=== PATIENT | female | born 1995 | race Caucasian/White ===

== ENCOUNTER 2024-01-26 11:28 | Outpatient (OUT) | payer OTHER, SELFPAY ==
--- NOTE | 2024-01-26 11:31 | US_ITS ---
The [address] [address] Patient Name: DEBBIE NARAYANAN MRN: [id number] date: 1995 Sex: F Assigned Patient Location: Current Patient Location: Accession/Order Number: [id number] Exam Date: 01/26/2024 11:50 Report Date: 01/26/2024 15:32 At the request of: GUDELIA ABDUL Procedure: US pelvis w/ transvaginal EXAMINATION: US pelvis w/ transvaginal HISTORY: Abnormal Menstrual Cycle N92.6 COMPARISON: No relevant comparison available. TECHNIQUE: Transabdominal and/or transvaginal sonographic examination was performed as indicated by examination type. FINDINGS: UTERUS: Normal size and appearance. Incidental small nabothian cyst within cervix. Uterus size: 10.8 x 4.9 x 6.1 cm ENDOMETRIUM: Normal homogeneous appearance. Endometrial thickness: 7 mm RIGHT OVARY: Normal size and appearance. Duplex Doppler demonstrates normal waveform and flow; resistive index 0.6. Ovary size: 3.8 x 2.2 x 2.7 cm LEFT OVARY: Normal size and appearance. Duplex Doppler demonstrates normal waveform and flow; resistive index 0.4. Ovary size: 4.8 x 2.8 x 3.8 cm CUL-DE-SAC: Trace amount of free fluid, likely physiologic. BLADDER: Unremarkable. OTHER: None. US/US pelvis w/ transvaginal IMPRESSION: 1. No abnormal or suspicious findings to account for patient's symptoms. Electronically authenticated by: BANG KELLOGG Date: 01/26/2024 15:32
== END 2024-01-26 11:29 | disposition home or self-care (01) ==
LOC: US 11:29
PROVIDERS: Visit Provider Obstetrics & Gynecology
DX: N92.6 Irregular menstruation, unspecified (principal); N94.6 Dysmenorrhea, unspecified
CPT/HCPCS: 76830; 76856

== ENCOUNTER 2024-03-29 11:00 | Outpatient (OUT) | payer OTHER, SELFPAY | END 2024-03-29 11:01 | disposition home or self-care (01) | LOC: PST 11:01 | PROVIDERS: Visit Provider Obstetrics & Gynecology | DX: Z01.818 Encounter for other preprocedural examination (principal); R10.2 Pelvic and perineal pain ==

== ENCOUNTER 2024-04-12 06:44 | Day surgery (SDC) | payer OTHER, SELFPAY ==
[2024-03-29 11:29] VITALS: BP 118/74; PULSE 73; TEMP 36.4; O2SAT 99; BMI 24.8
[2024-04-12] VITALS (13 sets, daily range): BP systolic 114–142; BP diastolic 60–93; PULSE 58–92; TEMP 36.3–36.6; O2SAT 98–100; BMI 24.6
--- OUTSIDE RECORDS SUMMARY | 2024-04-12 06:47 | XMS_ITS ---
Patient Summarization (C-CDA 2.1 CCD) Created on: April 12, 2024 DEBBIE NARAYANAN : 1995 Sex: Female Author Organization Sample organization Care Team Providers Care Shipping And Receiving Assistant Name Role Phone ARETHA ARELLANO Attending Unavailable ARETHA ARELLANO Admitting Unavailable Devonteebaleyda, DR Suazo Consulting Unavailable MISC, DR RAMIREZ Primary Care Unavailable ARETHA ARELLANO Consulting Unavailable CHANTELL, DR GALEAS Admitting Unavailable CHANTELL, DR GALEAS Consulting Unavailable CHANTELL, DR GALEAS Attending Unavailable MISC, DR RAMIREZ Primary Care Unavailable CHANTELL, DR GALEAS Attending Unavailable CHANTELL, DR GALEAS Admitting Unavailable CHANTELL, DR GALEAS Consulting Unavailable MISC, DR RAMIREZ Primary Care Unavailable CHANTELL, DR GALEAS Admitting Unavailable CHANTELL, DR GALEAS Consulting Unavailable MISC, DR RAMIREZ Primary Care Unavailable CHANTELL, DR GALEAS Attending Unavailable MISC, DR RAMIREZ Primary Care Unavailable CHANTELL, DR GALEAS Admitting Unavailable CHANTELL, DR GALEAS Attending Unavailable ARETHA ARELLANO Primary Care Unavailable CHANTELL, DR GALEAS Attending Unavailable CHANTELL, DR GALEAS Admitting Unavailable CHANTELL, DR GALEAS Consulting Unavailable ARETHA ARELLANO Consulting Unavailable ARETHA ARELLANO Attending Unavailable ARETHA ARELLANO Admitting Unavailable MISC, DR RAMIREZ Primary Care Unavailable CHANTELL, DR GALEAS Attending Unavailable CHANTELL, DR GALEAS Admitting Unavailable MISC, DR RAMIREZ Primary Care Unavailable CHANTELL, DR GALEAS Procedure Practitioner Unavailab le CHANTELL, DR GALEAS Admitting Unavailable CHANTELL, DR GALEAS Consulting Unavailable MISC, DR RAMIREZ Primary Care Unavailable CHANTELL, DR GALEAS Attending Unavailable ARETHA ARELLANO Consulting Unavailable LEDY DODSON Consulting Unavailable ARETHA ARELLANO Consulting Unavailable ARETHA ARELLANO Attending Unavailable ARETHA ARELLANO Admitting Unavailable ARETHA ARELLANO Consulting Unavailable ARETHA ARELLANO Attending Unavailable ARETHA ARELLANO Admitting Unavailable MISC, DR RAMIREZ Primary Care Unavailable ARETHA ARELLANO Consulting Unavailable ARETHA ARELLANO Attending Unavailable ARETHA ARELLANO Admitting Unavailable MISC, DR DOCTOR Primary Care Unavailable GUDELIA FLORENCE Attending Unavailable GUDELIA FLORENCE Attending Unavailable CHERRI, PASHA Elizalde Attending Unavailable Encounters Encounter Date Encounter Type Care Provider Facility Start: 03-19-2024 End: 03-19-2024 ambulatory GUDELIA FLORENCE Not Available Start: 01-24-2024 End: 01-24-2024 ambulatory GUDELIA FLORENCE Not Available Start: 10-11-2023 End: 10-11-2023 ambulatory PASHA HARLEY Not Available Start: 05-23-2022 End: 05-23-[address] GUDELIA FLORENCE Facility:[facility] Start: 10-11-[address] DOCTOR DALTON Facility :[facility] Start: 10-05-2021 End: 10-07-2021 Evaluation and management of inpatient DR GUDELIA FLORENCE Facility:[facility] Start: 10-04-2021 Encounter for prepro cedural laboratory examination DR GUDELIA FLORENCE [facility] Start: 10-02-2021 End: 10-03-[address] GUDELIA FLORENCE Facility:[facility] Start: 09-29-2021 End: 09-30-2021 Encounter for preprocedural laboratory examination DR GUDELIA FLORENCE Facility:[facility] Start: 09-29-2021 Evaluation and manag ement of inpatient DR GUDELIA FLORENCE Facility:[facility] Start: 09-29-2021 End: 09-30-[address] GUDELIA FLORENCE Facility:[facility] Start: 09-13-2021 End: 09-13-2021 ambulatory ARETHA ARELLANO Facility:[facility] Start: 09-10-2021 End: 09-11-2021 ambulatory ARETHA ARELLANO Facility:[facility] Start: 09-03-2021 End: 09-03-2021 ambulatory ARETHA ARELLANO Facility:[facility] Start: 08-20-2021 End: 08-20-2021 ambulatory ARETHA ARELLANO Facility:[facility] Start: 06-01-2021 End: 06-02-2021 ambulatory ARETHA ARELLANO Facility:[facility] Payers Date Payer Category Payer Unknown [id number] 2019 Unknown [id number] 1995 Unknown [id number] 2.16.84 [id number] 1995 Unknown [id number] 2.16.84 [id number] 1995 Unknown [id number] 2.16.84 [id number] 1995 Unknown [id number] 2.16.84 [id number] 1995 Unknown [id number] 2.16.84 [id number] 1995 Unknown [id number] 2.16.84 [id number] 1995 Unknown [id number] 2.16.84 [id number] 1995 Unknown [id number] 2.16.84 [id number] 1995 Unknown [id number] 2.16.84 [id number] 1995 Unknown [id number] 2.16.84 [id number] 1994 Unknown [id number] 2.16.84 [id number] 1994 Unknown [id number] 2.16.84 [id number] 1994 Unknown [id number] 2.16.84 [id number] 1994 Unknown [id number] 2.16.84 [id number] 1994 Unknown [id number] 2.16.840 .[id number] 1959 Unknown [id number] Problems Active Problems Problem Classification Problem Date Documented Date Episodic/Chronic Immunizations and screening for infectious disease (1 source) Encounter for screening for human papillomavirus (HPV); Translations: [ENC SCREENING HUMAN PAPILLOMAVIRUS] Onset: 05-24-2022 Episodic Other complications of ; puerperium affecting management of mother (1 source) Anemia of the puerperium; Translations: [ANEMIA OF THE PUERPERIUM] Onset: 10-12-2021 Chronic Other screening for suspected conditions (not mental disorders or infectious disease) (4 sources) Encounter for screening for malignant neoplasm of cervix; Translations: [ENC SCREENING MALIG NEOPLASM CERV] Onset: 05-23-2022 Episodic Unclassified (1 source) PERSONAL HISTORY OF COVID-19; Translations: [PERSONAL HISTORY OF COVID-19] Onset: 10-12-2021 Unclassified (1 source) OTH SPCF DIS/COND COMPL CHILDBIRTH; Translations: [OTH SPCF DIS/COND COMPL CHILDBIRTH] Onset: 10-12-2021 Unclassified (4 sources) CONTACT W/AND (SUSP) EXPOS COVID-19; Translations: [CONTACT W/AND (SUSP) EXPOS COVID-19] Onset: 10-04-2021 Past or Other Problems Problem Classification Problem Date Documented Date Episodic/Chronic Acute posthemorrhagic anemia (1 source) Acute posthemorrhagic anemia; Translations: [ACUTE POSTHEMORRHAGIC ANEMIA] Onset: 10-12-2021 Episodic Inflammatory diseases of female pelvic organs (1 source) Female pelvic peritoneal adhesions (postinfective); Translations: [FE PELV PERITON ADHES POSTINFECTIVE] Onset: 10-12-2021 Episodic Other complications of (2 sources) Supervision of other high risk pregnancies, third trimester; Translations: [SUP OTH HIGH RISK 3RD TRI] Onset: 10-04-2021 Episodic Other complications of (4 sources) Other specified related conditions, third trimester; Translations: [OTH SPEC PREG RELATED COND 3RD TRI] Onset: 08-20-2021 Episodic Other complications of (4 sources) Supervision of other high risk pregnancies, unspecified trimester; Translations: [SUP OTH HIGH RISK UNS TRI] Onset: 06-01-2021 Episodic Other and delivery including normal (6 sources) Single live ; Translations: [Encounter for supervision of normal , unspecified, third trimester] Onset: 06-08-2021 Episodic Previous (4 sources) Maternal care for low transverse scar from previous delivery; Translations: [MAT CARE LW TRANS SCAR PREV C/S DEL] Onset: 09-10-2021 Episodic Residual codes; unclassified (1 source) 39 weeks gestation of ; Translations: [39 WEEKS GESTATION OF ] Onset: 10-12-2021 Episodic Residual codes; unclassified (1 source) 38 weeks gestation of ; Translations: [38 WEEKS GESTATION OF ] Onset: 10-04-2021 Episodic Residual codes; unclassified (4 sources) Personal history of other complications of , childbirth and the puerperium; Translations: [PERS HX OTH COMP PG CHILDBIRTH AND PP] Onset: 09-29-2021 Episodic Residual codes; unclassified (1 source) 34 weeks gestation of ; Translations: [34 WEEKS GESTATION OF ] Onset: 09-10-2021 Episodic Residual codes; unclassified (1 source) 32 weeks gestation of ; Translations: [32 WEEKS GESTATION OF ] Onset: 08-28-2021 Episodic Unclassified (1 source) CONTACT W/AND (SUSP) EXPOS COVID-19; Translations: [CONTACT W/AND (SUSP) EXPOS COVID-19] Onset: 10-02-2021 Procedures Date Procedure Procedure Detail Performing Clinician Start: 10-05-2021 Extraction of Produc ts of Conception, Extraperitoneal, Open Approach ARETHA ARELLANO Results Test Name Value Interpretation Reference Range Facility PAP ACOG PANEL 2: 21 to 29on 05-26-2022 . . Normal [facility] Comment on above: Performed By: #### L DH, PREGQNT, URIC, BUN, ALT, AST, CREA, TSH #### [facility] [address], [place] [address] Dago Barragan Age Gdln ACOG Testing Normal [facility] Comment on above: Performed By: #### L DH, PREGQNT, URIC, BUN, ALT, AST, CREA, TSH #### [facility] [address], [place] [address] Dago Barragan DIAGNOSIS: Comment [facility] Comment on above: Result Comment: NEGA TIVE FOR INTRAEPITHELIAL LESION OR MALIGNANCY. Performed By: #### L DH, PREGQNT, URIC, BUN, ALT, AST, CREA, TSH #### [facility] [address] [place], [place] [address] Dago Barragan Methodology: Comment [facility] Comment on above: Result Comment: This liquid based ThinPrep(R) pap test was screened with the use of an image guided system. Performed By: #### L DH, PREGQNT, URIC, BUN, ALT, AST, CREA, TSH #### [facility] [address] [place] [address] Dago Barragan Note: Comment Normal [facility] Comment on above: Result Comment: The Pap smear is a screening test designed to aid in the detection of premalignant and malignant conditions of the uterine cervix. It is not a diagnostic procedure and should not be used as the sole means of detecting cervical cancer. Both false-positive and false-negative reports do occur. . Performed By: #### L DH, PREGQNT, URIC, BUN, ALT, AST, CREA, TSH #### [facility] [address] [place] [address] Dago Barragan Performed by: Comment Normal [facility] Comment on above: Result Comment: Joaquin Lawrence Broke Handler (ASCP) Performed By: #### L DH, PREGQNT, URIC, BUN, ALT, AST, CREA, TSH #### [facility] [address] [place] [address] Dago Barragan Reflex Criteria: Comment Normal [facility] Comment on above: Result Comment: The HPV DNA reflex criteria were not met with this specimen result therefore, no HPV testing was performed. . Performed By: #### L DH, PREGQNT, URIC, BUN, ALT, AST, CREA, TSH #### [facility] [address] [place] [address] Dago Barragan Specimen adequacy: Comment Normal [facility] Comment on above: Result Comment: Sati sfactory for evaluation. Endocervical and/or squamous metaplastic cells (endocervical component) are present. Performed By: #### L DH, PREGQNT, URIC, BUN, ALT, AST, CREA, TSH #### [facility] [address] [place] [address] Dago Barragan CBC AUTO DIFFon 10-06-2021 BASO # 0.0 103/ul Normal 0.0-0.1 [facility] Comment on above: Performed By: #### L DH, PREGQNT, URIC, BUN, ALT, AST, CREA, TSH #### [facility] [address] [place] [address] Dago Barragan Basophils/100 WBC (Bld) 0.2 % Normal 0.2-2.0 [facility] Comment on above: Performed By: #### L DH, PREGQNT, URIC, BUN, ALT, AST, CREA, TSH #### [facility] [address] [place] [address] Dagocolleen Barragan EO # 0.1 103/ul Normal 0.0-0.7 [facility] Comment on above: Performed By: #### L DH, PREGQNT, URIC, BUN, ALT, AST, CREA, TSH #### [facility] [address] [place] [address] Dago Barragan Eosinophils/100 WBC (Bld) 0.7 % Critically low 0.9-7.0 [facility] Comment on above: Performed By: #### L DH, PREGQNT, URIC, BUN, ALT, AST, CREA, TSH #### [facility] [address] [place] [address] Dago Barragan Erythrocyte distribution width (RBC) [Ratio] 13.0 % Normal 11.0-15.0 [facility] Comment on above: Performed By: #### L DH, PREGQNT, URIC, BUN, ALT, AST, CREA, TSH #### [facility] [address] [place] [address] Dago Barragan Hematocrit (Bld) [Volume fraction] 24.1 % Critically low 36.0-48.0 [facility] Comment on above: Performed By: #### L DH, PREGQNT, URIC, BUN, ALT, AST, CREA, TSH #### [facility] [address] [place] [address] Dago Barragan Hemoglobin (Bld) [Mass/Vol] 7.9 g/dL Critically low 12.0-16.0 [facility] Comment on above: Performed By: #### L DH, PREGQNT, URIC, BUN, ALT, AST, CREA, TSH #### [facility] [address] [place] [address] Dago Laurel IG # 0.05 10e3/ul Critically high 0.00-0.03 [facility] Comment on above: Performed By: #### L DH, PREGQNT, URIC, BUN, ALT, AST, CREA, TSH #### [facility] [address] [place] [address] Dago Laurel IG % 0.6 % Critically high 0.0-0.5 [facility] [place] Comment on above: Performed By: #### L DH, PREGQNT, URIC, BUN, ALT, AST, CREA, TSH #### [facility] [address] [place] [address] Dago Laurel LYMPH # 1.2 103/ul Normal 1.2-3.8 [facility] Comment on above: Performed By: #### L DH, PREGQNT, URIC, BUN, ALT, AST, CREA, TSH #### [facility] [address] [place] [address] Dago Laurel Lymphocytes/100 WBC (Bld) 14.9 % Critically low 20.5-60.0 [facility] Comment on above: Performed By: #### L DH, PREGQNT, URIC, BUN, ALT, AST, CREA, TSH #### [facility] [address] [place] [address] Dagocolleen Barragna MANUAL DIFF REQ NO Normal [facility] Comment on above: Performed By: #### L DH, PREGQNT, URIC, BUN, ALT, AST, CREA, TSH #### [facility] [address] [place] [address] Dago Laurel MCH (RBC) [Entitic mass] 29.8 pg Normal 26.7-34.0 [facility] Comment on above: Performed By: #### L DH, PREGQNT, URIC, BUN, ALT, AST, CREA, TSH #### [facility] [address] [place] [address] Dagocolleen Barragan MCHC (RBC) [Mass/Vol] 32.8 g/dL Normal 29.9-35.2 [facility] Comment on above: Performed By: #### L DH, PREGQNT, URIC, BUN, ALT, AST, CREA, TSH #### [facility] [address] [place] [address] Dago Barragan MCV (RBC) [Entitic vol] 90.9 fL Normal 81.0-99.0 [facility] Comment on above: Performed By: #### L DH, PREGQNT, URIC, BUN, ALT, AST, CREA, TSH #### [facility] [address] [place] [address] Dago Adamsen MONO # 0.7 103/ul Normal 0.3-0.8 [facility] Comment on above: Performed By: #### L DH, PREGQNT, URIC, BUN, ALT, AST, CREA, TSH #### [facility] [address] [place] [address] Dago Barragan Monocytes/100 WBC (Bld) 9.0 % Normal 1.7-12.0 [facility] Comment on above: Performed By: #### L DH, PREGQNT, URIC, BUN, ALT, AST, CREA, TSH #### [facility] [address] [place] [address] Dago Barragan NEUT # 6.0 103/ul Normal 1.4-6.5 [facility] Comment on above: Performed By: #### L DH, PREGQNT, URIC, BUN, ALT, AST, CREA, TSH #### [facility] [address] [place] [address] Dago Barragan Neutrophils/100 WBC (Bld) 74.6 % Normal 43.0-75.0 [facility] Comment on above: Performed By: #### L DH, PREGQNT, URIC, BUN, ALT, AST, CREA, TSH #### [facility] [address] [place] [address] Dago Barragan Platelet mean volume (Bld) [Entitic vol] 9.2 fL Critically low 9.5-13.5 [facility] Comment on above: Performed By: #### L DH, PREGQNT, URIC, BUN, ALT, AST, CREA, TSH #### [facility] [address] [place], [place] [id number] Dago Laurel PLT 137 103/ul Critically low 150-450 [facility] Comment on above: Performed By: #### L DH, PREGQNT, URIC, BUN, ALT, AST, CREA, TSH #### [facility] [address] [place] [address] Dago Laurel RBC 2.65 106/ul Critically low 4.20-5.40 [facility] Comment on above: Performed By: #### L DH, PREGQNT, URIC, BUN, ALT, AST, CREA, TSH #### [facility] [address] [place] [address] Dago Laurel WBC 8.0 103/ul Normal 4.0-11.0 [facility] Comment on above: Performed By: #### L DH, PREGQNT, URIC, BUN, ALT, AST, CREA, TSH #### [facility] [address] [place] [address] Dago Laurel CBC AUTO DIFFon 10-05-2021 BASO # 0.0 103/ul Normal 0.0-0.1 [facility] Comment on above: Performed By: #### C REA24U, [id number] #### [facility] [address] [place], [place] [id number] Dago Luarel Basophils/100 WBC (Bld) 0.3 % Normal 0.2-2.0 [facility] Comment on above: Performed By: #### C REA24U, [id number] #### [facility] [address] [place] [address] Dago Laurel EO # 0.1 103/ul Normal 0.0-0.7 [facility] Comment on above: Performed By: #### C REA24U, [id number] #### [facility] [address] [place], [place] [id number] Dago Laurel Eosinophils/100 WBC (Bld) 1.0 % Normal 0.9-7.0 [facility] Comment on above: Performed By: #### C REA24U, [id number] #### [facility] [address] [place] [address] Dago Laurel Erythrocyte distribution width (RBC) [Ratio] 12.8 % Normal 11.0-15.0 [facility] Comment on above: Performed By: #### C REA24U, [id number] #### [facility] [address] [place] [address] Dago Laurel Hematocrit (Bld) [Volume fraction] 33.3 % Critically low 36.0-48.0 [facility] Comment on above: Performed By: #### C REA24U, [id number] #### [facility] [address] [place] [address] Dago Laurel Hemoglobin (Bld) [Mass/Vol] 11.1 g/dL Critically low 12.0-16.0 [facility] Comment on above: Performed By: #### C REA24U, [id number] #### [facility] [address] [place] [address] Dago Laurel IG # 0.05 10e3/ul Critically high 0.00-0.03 [facility] Comment on above: Performed By: #### C REA24U, [id number] #### [facility] [address] [place] [address] Dago Laurel IG % 0.6 % Critically high 0.0-0.5 [facility] Comment on above: Performed By: #### C REA24U, [id number] #### [facility] [address] [place] [address] Dago Laurel LYMPH # 1.3 103/ul Normal 1.2-3.8 [facility] Comment on above: Performed By: #### C REA24U, [id number] #### [facility] [address] [place] [address] Dagocolleen Barragan Lymphocytes/100 WBC (Bld) 16.2 % Critically low 20.5-60.0 [facility] Comment on above: Performed By: #### C REA24U, [id number] #### [facility] [address] [place], [place] [id number] Dago Laurel MANUAL DIFF REQ NO Normal [facility] Comment on above: Performed By: #### C REA24U, [id number] #### [facility] [address] [id number] Dago Laurel MCH (RBC) [Entitic mass] 29.4 pg Normal 26.7-34.0 [facility] Comment on above: Performed By: #### C REA24U, [id number] #### [facility] [address] [place], [place] [id number] Dago Laurel MCHC (RBC) [Mass/Vol] 33.3 g/dL Normal 29.9-35.2 [facility] Comment on above: Performed By: #### C REA24U, [id number] #### [facility] [address] [place] [address] Dagocolleen Adamsen MCV (RBC) [Entitic vol] 88.3 fL Normal 81.0-99.0 [facility] Comment on above: Performed By: #### C REA24U, [id number] #### [facility] [address] [place], [place] [address] Dago Laurel MONO # 0.5 103/ul Normal 0.3-0.8 [facility] Comment on above: Performed By: #### C REA24U, [id number] #### [facility] [address] [place], [place] [address] Dago Laurel Monocytes/100 WBC (Bld) 6.5 % Normal 1.7-12.0 [facility] Comment on above: Performed By: #### C REA24U, [id number] #### [facility] [address] [place], [place] [address] Dago Laurel NEUT # 5.8 103/ul Normal 1.4-6.5 [facility] Comment on above: Performed By: #### C REA24U, [id number] #### [facility] [address] [place], [place] [id number] Dago Laurel Neutrophils/100 WBC (Bld) 75.4 % Critically high 43.0-75.0 [facility] Comment on above: Performed By: #### C REA24U, [id number] #### [facility] [address] [place] [address] Dago Barragan Platelet mean volume (Bld) [Entitic vol] 9.5 fL Normal 9.5-13.5 [facility] Comment on above: Performed By: #### C REA24U, [id number] #### [facility] [address] [place] [address] Dago Laurel PLT 173 103/ul Normal 150-450 [facility] Comment on above: Performed By: #### C REA24U, [id number] #### [facility] [address] [place] [address] Dagocolleen Barragan RBC 3.77 106/ul Critically low 4.20-5.40 [facility] Comment on above: Performed By: #### Janneth REA24U, [id number] #### [facility] [address] [place] [address] Dagocolleen Barragan WBC 7.7 103/ul Normal 4.0-11.0 [facility] Comment on above: Performed By: #### Janneth REA24U, [id number] #### [facility] [address] [place] [address] Dago Laurel DRUG SCREEN RAPID (URINE)on 10-05-2021 AMP Negative Normal NEGATIVE [facility] Comment on above: Performed By: #### Janneth REA24U, [id number] #### [facility] [address] [place] [address] Dago Laurel BAR Negative Normal NEGATIVE [facility] Comment on above: Performed By: #### C REA24U, [id number] #### [facility] [address] [place] [address] Dago Laurel BUP Negative Normal NEGATIVE [facility] Comment on above: Performed By: #### C REA24U, [id number] #### [facility] [address] [place] [address] Dago Laurel BZO Negative Normal NEGATIVE [facility] Comment on above: Performed By: #### C REA24U, [id number] #### [facility] [address] [place] [address] Dago Laurel MAME Negative Normal NEGATIVE [facility] Comment on above: Performed By: #### C REA24U, [id number] #### [facility] [address] [place] [address] Dago Laurel CUT-OFFS SEE BELOW Normal [facility] Comment on above: Result Comment: AMP (Amphetamine): 500ng/mL, BAR (Barbituates): 200 ng/mL, BZO (Benzodiazepines): 150 ng/mL, BUP (Buprenorphine): 10 ng/mL, MAME (Cocaine): 150 ng/mL, mAMP (Methamphetamine): 500 ng/mL, MTD (Methadone): 200 ng/mL, OPI (Opiates): 100 ng/mL, OXY (Oxycodone): 100 ng/mL, PCP (Phencyclidine): 25 ng/mL, PPX (Propoxyphene): 300 ng/mL, THC (Cannabinoids): 50 ng/mL, TCA (Trycyclic Antidepressants): 300 ng/mL Performed By: #### C REA24U, [id number] #### [facility] [address] [place] [address] DRUG CUT HEADER DRUG CLASS TEST SYSTEM CUT-OFF CONCENTRATIONS ARE FOLLOWS: Normal [facility] Comment on above: Performed By: #### C REA24U, [id number] #### [facility] [address] [place] [address] Dago Laurel mAMP Negative Normal NEGATIVE [facility] Comment on above: Performed By: #### C REA24U, [id number] #### [facility] [address] [place] [address] Dago Laurel MTD Negative Normal NEGATIVE [facility] Comment on above: Performed By: #### C REA24U, [id number] #### [facility] [address] [place] [address] Dago Laurel OPI Negative Normal NEGATIVE [facility] Comment on above: Performed By: #### C REA24U, [id number] #### [facility] [address] [place] [address] Dago Laurel OXY Negative Normal NEGATIVE [facility] Comment on above: Performed By: #### C REA24U, [id number] #### [facility] [address] [place] [address] Dago Laurel PCP Negative Normal NEGATIVE [facility] Comment on above: Performed By: #### C REA24U, [id number] #### [facility] [address] [place] [address] Dago Laurel PPX Negative Normal NEGATIVE [facility] Comment on above: Performed By: #### C REA24U, [id number] #### [facility] [address] [place] [address] Dago Laurel TCA Negative Normal NEGATIVE [facility] Comment on above: Performed By: #### C REA24U, [id number] #### [facility] [address] [place] [address] Dago Laurel THC Negative Normal NEGATIVE [facility] Comment on above: Performed By: #### C REA24U, [id number] #### [facility] [address] [place] [address] Dago Laurel TYPE AND SCREENon 10-05-2021 TYPE AND SCREEN Negative Normal [facility] Comment on above: Performed By: #### C REA24U, [id number] #### [facility] [address] [place] [address] Dago Laurel UA (CLEAN/CATCH) FISH CUTTER/MICRO I F IND.on 10-05-2021 Bilirubin Ql (U) Negative Normal NEGATIVE [facility] Comment on above: Performed By: #### C REA24U, [id number] #### [facility] [address] [place] [address] Dago Laurel Clarity (U) CLEAR Normal CLEAR [facility] Comment on above: Performed By: #### C REA24U, [id number] #### [facility] [address] [place] [address] Dago Laurel Color (U) LT. YELLOW Normal YELLOW [facility] Comment on above: Performed By: #### C REA24U, [id number] #### [facility] [address] [place] [address] Dago Laurel Glucose Ql (U) Negative Normal NEGATIVE [facility] Comment on above: Performed By: #### C REA24U, [id number] #### [facility] [address] [place], [place] [id number] Dago Laurel Hemoglobin Ql (U) Negative Normal NEGATIVE [facility] Comment on above: Performed By: #### C REA24U, [id number] #### [facility] [address] [place] [address] Dago Laurel Ketones Ql (U) Negative Normal NEGATIVE [facility] Comment on above: Performed By: #### C REA24U, [id number] #### [facility] [address] [place] [address] Dago Laurel LEUKOCYTES Negative Normal NEGATIVE [facility] Comment on above: Performed By: #### C REA24U, [id number] #### [facility] [address] [place] [address] Dago Laurel Nitrite Ql (U) Negative Normal NEGATIVE [facility] Comment on above: Performed By: #### C REA24U, [id number] #### [facility] [address] [place] [address] Dago Laurel pH (U) 6.0 [pH] Normal 5-9 [facility] Comment on above: Performed By: #### C REA24U, [id number] #### [facility] [address] [place] [address] Dago Laurel SPEC GRAVITY 1.010 Normal 1.005-<=1.025 [facility] Comment on above: Performed By: #### C REA24U, [id number] #### [facility] [address] [place] [address] Dago Laurel UA PROTEIN Negative Normal NEGATIVE/ TRACE [facility] Comment on above: Performed By: #### C REA24U, [id number] #### [facility] [address] [address] Dago Barragan UR MICRO IND NOT INDICATED Normal [facility] Comment on above: Performed By: #### C REA24U, [id number] #### [facility] [address] [id number] Dago Barragan Urobilinogen Qn (U) 0.2 {Becca'U}/dL Normal 0.2 - 1. 0 [facility] Comment on above: Performed By: #### C REA24U, [id number] #### [facility] [address] [address] Dago Barragan Covid-19 PCR (CVDTBH)on 09-07 SARS-CoV-2 (COVID-19) RNA LORA+probe Ql (Unsp spec) Not detected Normal NOT DETECTED [facility] Comment on above: Result Comment: This test is not yet approved or cleared by the [place] FDA. When there are no FDA-approved or cleared tests available, and other criteria are met, FDA can make tests available under an emergency access mechanism called an Emergency Use Authorization (EUA). The EUA for this test is supported by the Bed Setter of Health and Human Service's (HHS's) declaration that circumstances exist to justify the emergency use of in vitro diagnostics for the detection and/or diagnosis of the virus that causes COVID-19. This EUA will remain in effect (meaning this test can be used) for the duration of the COVID-19 declaration justifying emergency of IVDs, unless it is terminated or revoked by FDA (after which the test may no longer be used). When diagnostic testing is negative, the possibility of a false negative should be considered in the context of a patient's recent exposures and the presence of clinical signs and symptoms consistent with SARS-CoV-2. Performed By: #### C REA24U, [id number] #### [facility] [address] [place], [place] [id number] Dago Barragan Covid-19 PCR (CVDTBH)on 09-07 SARS-CoV-2 (COVID-19) RNA LORA+probe Ql (Unsp spec) Not detected Normal NOT DETECTED [facility] Comment on above: Result Comment: This test is not yet approved or cleared by the [place] FDA. When there are no FDA-approved or cleared tests available, and other criteria are met, FDA can make tests available under an emergency access mechanism called an Emergency Use Authorization (EUA). The EUA for this test is supported by the Bed Setter of Health and Human Service's (HHS's) declaration that circumstances exist to justify the emergency use of in vitro diagnostics for the detection and/or diagnosis of the virus that causes COVID-19. This EUA will remain in effect (meaning this test can be used) for the duration of the COVID-19 declaration justifying emergency of IVDs, unless it is terminated or revoked by FDA (after which the test may no longer be used). When diagnostic testing is negative, the possibility of a false negative should be considered in the context of a patient's recent exposures and the presence of clinical signs and symptoms consistent with SARS-CoV-2. Performed By: #### L DH, PREGQNT, URIC, BUN, ALT, AST, CREA, TSH #### [facility] [address] [place] [address] Dago Barragan PREG GROWTHon 09-29-2021 PREG GROWTH EXAMINATION: US PREG GROWTH HISTORY: History of complication of , childbirth and/or puerperium COMPARISON: No relevant comparison available. FINDINGS: Heart Rate: 138.5 bpm Number: 1.0 Position: Cephalic Amniotic Fluid Volume: 17.0 cm Maximum Vertical Pocket: 7.8 cm BIOMETRY: BPD: 9.4 cm cm; 38 weeks 3 days HC: 34.0 cmcm; 39 weeks 0 days AC: 34.6 cm cm; 38 weeks 3 days FL: 6.6 cm cm; 34 weeks 1 days EFW: 3244.8 grams; 45th percentile FL/AC: 19.2 FL/BPD: 70.3 HC/AC: 1.0 GESTATIONAL AGE: Age by EDC: 38 weeks 2 days YOSI by EDC: 10/11/2021 Age by US: 37 weeks, 4 days YOSI by US: 10/16/2021 IMPRESSION: 1. Single live intrauterine with growth detailed above. 2. Femur length is less than 3rd percentile. 3. Questionable thickening of the gallbladder wall; nonspecific. Consider follow-up. Electronically authenticated by: BANG KELLOGG Date: 2021-09-29 16:28 Normal [facility] CHLAMYDIA/GONOCOCCUS LORA (SW AB/URINE/PAPon 09-16-2021 Chlamydia trachomatis, LORA Negative Normal Negative [facility] Comment on above: Performed By: #### C REA24U, [id number] #### [facility] [address] [place] [address] Dago Laurel Neisseria gonorrhoeae, LORA Negative Normal Negative [facility] Comment on above: Performed By: #### C REA24U, [id number] #### [facility] [address] [place] [address] Dago Laurel GROUP B STREP CULTUREon S. agalactiae Ag Ql (Unsp spec) Culture Observations: NEGATIVE FOR GROUP B STREPTOCOCCUS. Normal [facility] Comment on above: Performed By: #### C REA24U, [id number] #### [facility] [address] [place] [address] Dago Laurel CBC AUTO DIFFon 09-10-2021 BASO # 0.0 103/ul Normal 0.0-0.1 [facility] Comment on above: Performed By: #### Janneth REA24U, [id number] #### [facility] [address] [place] [address] Dago Laurel Basophils/100 WBC (Bld) 0.3 % Normal 0.2-2.0 [facility] Comment on above: Performed By: #### C REA24U, [id number] #### [facility] [address] [place] [address] Dago Laurel EO # 0.1 103/ul Normal 0.0-0.7 [facility] Comment on above: Performed By: #### C REA24U, [id number] #### [facility] [address] [place] [address] Dago Laurel Eosinophils/100 WBC (Bld) 0.7 % Critically low 0.9-7.0 [facility] Comment on above: Performed By: #### C REA24U, [id number] #### [facility] [address] [place] [address] Dagocolleen Barragan Erythrocyte distribution width (RBC) [Ratio] 12.7 % Normal 11.0-15.0 [facility] Comment on above: Performed By: #### C REA24U, [id number] #### [facility] [address] [place] [address] Dago Laurel Hematocrit (Bld) [Volume fraction] 32.6 % Critically low 36.0-48.0 [facility] Comment on above: Performed By: #### C REA24U, [id number] #### [facility] [address] [place] [address] Dago Laurel Hemoglobin (Bld) [Mass/Vol] 10.8 g/dL Critically low 12.0-16.0 [facility] Comment on above: Performed By: #### C REA24U, [id number] #### [facility] [address] [place] [address] Dago Laurel IG # 0.07 10e3/ul Critically high 0.00-0.03 [facility] Comment on above: Performed By: #### C REA24U, [id number] #### [facility] [address] [place] [address] Dago Laurel IG % 0.9 % Critically high 0.0-0.5 The [facility] Comment on above: Performed By: #### C REA24U, [id number] #### [facility] [address] [place] [address] Dago Laurel LYMPH # 0.9 103/ul Critically low 1.2-3.8 [facility] Comment on above: Performed By: #### C REA24U, [id number] #### [facility] [address] [place] [address] Dago Laurel Lymphocytes/100 WBC (Bld) 12.2 % Critically low 20.5-60.0 [facility] Comment on above: Performed By: #### C REA24U, [id number] #### [facility] [address] [place] [address] Dago Laurel MANUAL DIFF REQ NO Normal The [facility] Comment on above: Performed By: #### C REA24U, [id number] #### [facility] [address] [place], [place] [id number] Dagocolleen Barragan MCH (RBC) [Entitic mass] 30.0 pg Normal 26.7-34.0 [facility] Comment on above: Performed By: #### C REA24U, [id number] #### [facility] [address] [place] [address] Dagocolleen Barragan MCHC (RBC) [Mass/Vol] 33.1 g/dL Normal 29.9-35.2 [facility] Comment on above: Performed By: #### C REA24U, [id number] #### [facility] [address] [place] [address] Dagocolleen Barragan MCV (RBC) [Entitic vol] 90.6 fL Normal 81.0-99.0 [facility] Comment on above: Performed By: #### C REA24U, [id number] #### [facility] [address] [place] [address] Dago Laurel MONO # 0.4 103/ul Normal 0.3-0.8 [facility] Comment on above: Performed By: #### C REA24U, [id number] #### [facility] [address] [place] [address] Dago Laurel Monocytes/100 WBC (Bld) 5.2 % Normal 1.7-12.0 [facility] Comment on above: Performed By: #### C REA24U, [id number] #### [facility] [address] [place] [address] Dago Laurel NEUT # 6.0 103/ul Normal 1.4-6.5 [facility] Comment on above: Performed By: #### C REA24U, [id number] #### [facility] [address] [place], [place] [id number] Dago Laurel Neutrophils/100 WBC (Bld) 80.7 % Critically high 43.0-75.0 [facility] Comment on above: Performed By: #### C REA24U, [id number] #### [facility] [address] [place] [address] Dago Barragan Platelet mean volume (Bld) [Entitic vol] 9.0 fL Critically low 9.5-13.5 [facility] Comment on above: Performed By: #### C REA24U, [id number] #### [facility] [address] [place] [address] Dago Barragan PLT 153 103/ul Normal 150-450 [facility] Comment on above: Performed By: #### C REA24U, [id number] #### [facility] [address] [place] [address] Dago Barragan RBC 3.60 106/ul Critically low 4.20-5.40 [facility] Comment on above: Performed By: #### C REA24U, [id number] #### [facility] [address] [place] [address] Dago Barragan WBC 7.4 103/ul Normal 4.0-11.0 [facility] Comment on above: Performed By: #### C REA24U, [id number] #### [facility] [address] [place] [address] Dago Barragan GLUCOSE - 1HRon 09-10-2021 Glucose [Mass/Vol] 113 mg/dL Critically high 74-106 [facility] Comment on above: Performed By: #### C REA24U, [id number] #### [facility] [address] [place] [address] Dago Barragan CULTURE URINEon 09-03-2021 CULTURE URINE Culture Observations : HEAVY GROWTH OF MIXED GENITAL TOD. NO POTENTIAL PATHOGENS SEEN. Normal [facility] Comment on above: Performed By: #### C REA24U, [id number] #### [facility] [address] [place] [address] Dago Barragan UA (CLEAN/CATCH) FISH CUTTER/MICRO I F IND.on 09-03-2021 Bilirubin Ql (U) Negative Normal NEGATIVE [facility] Comment on above: Performed By: #### L DH, PREGQNT, URIC, BUN, ALT, AST, CREA, TSH #### [facility] [address] [address] Dago Laurel Clarity (U) SL CLOUDY Abnormal CLEAR [facility] Comment on above: Performed By: #### L DH, PREGQNT, URIC, BUN, ALT, AST, CREA, TSH #### [facility] [address] [place] [address] Dago Laurel Color (U) YELLOW Normal YELLOW [facility] Comment on above: Performed By: #### L DH, PREGQNT, URIC, BUN, ALT, AST, CREA, TSH #### [facility] [address] [place] [address] Dago Laurel Glucose Ql (U) Negative Normal NEGATIVE [facility] Comment on above: Performed By: #### L DH, PREGQNT, URIC, BUN, ALT, AST, CREA, TSH #### [facility] [address] [place] [address] Dago Laurel Hemoglobin Ql (U) LARGE Abnormal NEGATIVE [facility] Comment on above: Performed By: #### L DH, PREGQNT, URIC, BUN, ALT, AST, CREA, TSH #### [facility] [address] [place] [address] Dago Laurel Ketones Ql (U) Negative Normal NEGATIVE [facility] Comment on above: Performed By: #### L DH, PREGQNT, URIC, BUN, ALT, AST, CREA, TSH #### [facility] [address] [place] [address] Dago Laurel LEUKOCYTES SMALL Abnormal NEGATIVE [facility] Comment on above: Performed By: #### L DH, PREGQNT, URIC, BUN, ALT, AST, CREA, TSH #### [facility] [address] [place] [address] Dago Laurel Nitrite Ql (U) Negative Normal NEGATIVE [facility] Comment on above: Performed By: #### L DH, PREGQNT, URIC, BUN, ALT, AST, CREA, TSH #### [facility] [address] [place] [address] Dago Barragan pH (U) 5.5 [pH] Normal 5-9 [facility] Comment on above: Performed By: #### L DH, PREGQNT, URIC, BUN, ALT, AST, CREA, TSH #### [facility] [address] [place] [address] Dago Barragan SPEC GRAVITY >=1.030 Abnormal 1.005-<=1.025 The [facility] Comment on above: Performed By: #### L DH, PREGQNT, URIC, BUN, ALT, AST, CREA, TSH #### [facility] [address] [place] [address] Dago Barragan UA PROTEIN 30 mg/dl Abnormal NEGATIVE/ TRACE [facility] Comment on above: Performed By: #### L DH, PREGQNT, URIC, BUN, ALT, AST, CREA, TSH #### [facility] [address] [place] [address] Dago Barragan UR MICRO IND INDICATED Normal [facility] Comment on above: Performed By: #### L DH, PREGQNT, URIC, BUN, ALT, AST, CREA, TSH #### [facility] [address] [place] [address] Dago Barragan Urobilinogen Qn (U) 0.2 {Becca'U}/dL Normal 0.2 - 1. 0 [facility] Comment on above: Performed By: #### L DH, PREGQNT, URIC, BUN, ALT, AST, CREA, TSH #### [facility] [address] [place] [address] Dago Barragan URINE MICROSCOPIC ONLYon BACTERIA TRACE Abnormal NONE SEEN [facility] Comment on above: Performed By: #### L DH, PREGQNT, URIC, BUN, ALT, AST, CREA, TSH #### [facility] [address] [place] [address] Dago Barragan Bacteria identified Cx Nom (U) INDICATED Normal [facility] Comment on above: Performed By: #### L DH, PREGQNT, URIC, BUN, ALT, AST, CREA, TSH #### [facility] [address] [place] [address] Dago Laurel CAST NONE SEEN Normal NONE SEEN [facility] Comment on above: Performed By: #### L DH, PREGQNT, URIC, BUN, ALT, AST, CREA, TSH #### [facility] [address] [place] [address] Dago Laurel Crystals LM Nom (Urine sed) NONE SEEN Normal NONE SEEN [facility] Comment on above: Performed By: #### L DH, PREGQNT, URIC, BUN, ALT, AST, CREA, TSH #### [facility] [address] [place] [address] Dago Laurel Epithelial cells LM Ql (Urine sed) FEW Abnormal NONE SEEN /RARE [facility] Comment on above: Performed By: #### L DH, PREGQNT, URIC, BUN, ALT, AST, CREA, TSH #### [facility] [address] [place] [address] Dago Laurel MUCOUS NONE SEEN Normal NONE SEEN [facility] Comment on above: Performed By: #### L DH, PREGQNT, URIC, BUN, ALT, AST, CREA, TSH #### [facility] [address] [place] [address] Dago Laurel RBC 50-75 Abnormal 0-2 [facility] Comment on above: Performed By: #### L DH, PREGQNT, URIC, BUN, ALT, AST, CREA, TSH #### [facility] [address] [place] [address] Dago Laurel WBC 2-5 Abnormal NONE SEEN [facility] Comment on above: Performed By: #### L DH, PREGQNT, URIC, BUN, ALT, AST, CREA, TSH #### [facility] [address] [place] [address] Dago Laurel CULTURE URINEon 08-20-2021 CULTURE URINE Culture Observations : MODERATE GROWTH OF MIXED GENITAL TOD. NO POTENTIAL PATHOGENS SEEN. Normal [facility] Comment on above: Performed By: #### C REA24U, [id number] #### [facility] [address] [place] [address] Dago Laurel UA (CLEAN/CATCH) FISH CUTTER/MICRO I F IND.on 08-20-2021 Bilirubin Ql (U) Negative Normal NEGATIVE [facility] Comment on above: Performed By: #### L DH, PREGQNT, URIC, BUN, ALT, AST, CREA, TSH #### [facility] [address] [place] [address] Dago Laurel Clarity (U) CLEAR Normal CLEAR [facility] Comment on above: Performed By: #### L DH, PREGQNT, URIC, BUN, ALT, AST, CREA, TSH #### [facility] [address] [place] [address] Dago Laurel Color (U) LT. YELLOW Normal YELLOW [facility] Comment on above: Performed By: #### L DH, PREGQNT, URIC, BUN, ALT, AST, CREA, TSH #### [facility] [address] [place] [address] Dago Laurel Glucose Ql (U) Negative Normal NEGATIVE [facility] Comment on above: Performed By: #### L DH, PREGQNT, URIC, BUN, ALT, AST, CREA, TSH #### [facility] [address] [place] [address] Dago Laurel Hemoglobin Ql (U) Negative Normal NEGATIVE [facility] Comment on above: Performed By: #### L DH, PREGQNT, URIC, BUN, ALT, AST, CREA, TSH #### [facility] [address] [place] [address] Dago Laurel Ketones Ql (U) Negative Normal NEGATIVE [facility] Comment on above: Performed By: #### L DH, PREGQNT, URIC, BUN, ALT, AST, CREA, TSH #### [facility] [address] [place] [address] Dago Laurel LEUKOCYTES MODERATE Abnormal NEGATIVE [facility] Comment on above: Performed By: #### L DH, PREGQNT, URIC, BUN, ALT, AST, CREA, TSH #### [facility] [address] [place] [address] Dago Laurel Nitrite Ql (U) Negative Normal NEGATIVE [facility] Comment on above: Performed By: #### L DH, PREGQNT, URIC, BUN, ALT, AST, CREA, TSH #### [facility] [address] [place] [address] Dago Barragan pH (U) 7.0 [pH] Normal 5-9 [facility] Comment on above: Performed By: #### L DH, PREGQNT, URIC, BUN, ALT, AST, CREA, TSH #### [facility] [address] [place] [address] Dago Barragan SPEC GRAVITY 1.020 Normal 1.005-<=1.025 The [facility] Comment on above: Performed By: #### L DH, PREGQNT, URIC, BUN, ALT, AST, CREA, TSH #### [facility] [address] [place] [address] Dago Barragan UA PROTEIN Negative Normal NEGATIVE/ TRACE [facility] Comment on above: Performed By: #### L DH, PREGQNT, URIC, BUN, ALT, AST, CREA, TSH #### [facility] [address] [place] [address] Dago Barragan UR MICRO IND INDICATED Normal The [facility] Comment on above: Performed By: #### L DH, PREGQNT, URIC, BUN, ALT, AST, CREA, TSH #### [facility] [address] [place] [address] Dago Barragan Urobilinogen Qn (U) 0.2 {Becca'U}/dL Normal 0.2 - 1. 0 The [facility] Comment on above: Performed By: #### L DH, PREGQNT, URIC, BUN, ALT, AST, CREA, TSH #### [facility] [address] [place] [address] Dago Barragan URINE MICROSCOPIC ONLYon BACTERIA MODERATE Abnormal NONE SEEN The [facility] Comment on above: Performed By: #### L DH, PREGQNT, URIC, BUN, ALT, AST, CREA, TSH #### [facility] [address] [place] [address] Dago Barragan Bacteria identified Cx Nom (U) INDICATED Normal The [facility] Comment on above: Performed By: #### L DH, PREGQNT, URIC, BUN, ALT, AST, CREA, TSH #### [facility] [address] [place] [address] Dagocolleen Barragan CAST NONE SEEN Normal NONE SEEN The [facility] Comment on above: Performed By: #### L DH, PREGQNT, URIC, BUN, ALT, AST, CREA, TSH #### [facility] [address] [place] [address] Dagocolleen Barragan Crystals LM Nom (Urine sed) NONE SEEN Normal NONE SEEN The [facility] Comment on above: Performed By: #### L DH, PREGQNT, URIC, BUN, ALT, AST, CREA, TSH #### [facility] [address] [place] [address] Dago Barragan Epithelial cells LM Ql (Urine sed) MODERATE Abnormal NONE SEEN /RARE The [facility] Comment on above: Performed By: #### L DH, PREGQNT, URIC, BUN, ALT, AST, CREA, TSH #### [facility] [address] [place] [address] Dago Barragan MUCOUS SMALL Abnormal NONE SEEN The [facility] Comment on above: Performed By: #### L DH, PREGQNT, URIC, BUN, ALT, AST, CREA, TSH #### [facility] [address] [place] [address] Dago Barragan RBC 0-2 Normal 0-2 The [facility] Comment on above: Performed By: #### L DH, PREGQNT, URIC, BUN, ALT, AST, CREA, TSH #### [facility] [address] [place] [address] Dago Barragan WBC 5-10 Abnormal NONE SEEN The [facility] Comment on above: Performed By: #### L DH, PREGQNT, URIC, BUN, ALT, AST, CREA, TSH #### [facility] [address] [place] [address] Dago Barragan HEMOGLOBINOPATHY FRACTIONATI ON CASCADE06-02-2021 HGB A 97.3 % Normal 96.4-98.8 [facility] Comment on above: Performed By: #### C REA24U, [id number] #### [facility] [address] [place] [address] Dago Barragan HGB A2 2.7 % Normal 1.8-3.2 [facility] Comment on above: Performed By: #### C REA24U, [id number] #### [facility] [address] [place] [address] Dago Laurel HGB F 0.0 % Normal 0.0-2.0 [facility] Comment on above: Performed By: #### C REA24U, [id number] #### [facility] [address] [place] [address] Dago Barragan HGB S 0.0 % Normal 0.0 [facility] Comment on above: Performed By: #### C REA24U, [id number] #### [facility] [address] [place] [address] Dago Barragan Interpretation: Comment Normal The [facility] Comment on above: Result Comment: Norm al hemoglobin present; no hemoglobin variant or thalassemia observed. Performed By: #### C REA24U, [id number] #### [facility] [address] [place] [address] [facility] SURFACE ANTIGEN SCREEN on 06-02-2021 HBsAg Screen Negative Normal Negative [facility] Comment on above: Performed By: #### L DH, PREGQNT, URIC, BUN, ALT, AST, CREA, TSH #### [facility] [address] [place] [address] Dago Laurel HEPATITIS C ANTIBODYon 06-02 Hep C Virus Ab 0.1 s/co ratio Normal 0.0-0.9 [facility] Comment on above: Result Comment: Nega tive: < 0.8 Indeterminate: 0.8 - 0.9 Positive: > 0.9 . The CDC recommends that a positive HCV antibody result be followed up with a HCV Nucleic Acid Amplification test (641469). Performed By: #### L DH, PREGQNT, URIC, BUN, ALT, AST, CREA, TSH #### [facility] [address] [place] [address] Dago Barragan HIV 1 AND 2 WITH REFLEXon HIV Screen 4th Generation wRfx Non-Reactive Normal Non Reactive The [facility] Comment on above: Performed By: #### H IV12 #### [facility] [address] [place] [address] Dago Barragan RPR QUANTon 06-02-2021 Rapid Plasma Reagin, Quant Non-Reactive Normal NonRea<1:1 The [facility] Comment on above: Performed By: #### L DH, PREGQNT, URIC, BUN, ALT, AST, CREA, TSH #### [facility] [address] [place] [address] Dago Barragan RUBELLA AB IGGon 06-02-2021 Rubella Antibodies, IgG 2.27 index Normal Immune >0.99 [facility] Comment on above: Result Comment: Non- immune <0.90 Equivocal 0.90 - 0.99 Immune >0.99 Performed By: #### L DH, PREGQNT, URIC, BUN, ALT, AST, CREA, TSH #### [facility] [address] [place] [address] Dago Barragan VARICELLA IGG ABon Varicella Zoster IgG 1072 index Normal Immune >165 The [facility] Comment on above: Result Comment: Nega tive <135 Equivocal 135 - 165 Positive >165 A positive result generally indicates exposure to the pathogen or administration of specific immunoglobulins, but it is not indication of active infection or stage of disease. Performed By: #### C REA24U, [id number] #### [facility] [address] [place] [address] Dago Barragan BUNon 06-01-2021 Urea nitrogen [Mass/Vol] 9.0 mg/dL Normal 7.0-17.0 [facility] Comment on above: Performed By: #### L DH, PREGQNT, URIC, BUN, ALT, AST, CREA, TSH #### [facility] [address] [place] [address] Dago Barragan CBC AUTO DIFFon 06-01-2021 BASO # 0.0 103/ul Normal 0.0-0.1 [facility] Comment on above: Performed By: #### C NADYAA24U, [id number] #### [facility] [address] [place] [address] Dago Laurel Basophils/100 WBC (Bld) 0.3 % Normal 0.2-2.0 The [facility] Comment on above: Performed By: #### C NADYAA24U, [id number] #### [facility] [address] [place] [address] Dago Laurel EO # 0.1 103/ul Normal 0.0-0.7 The [facility] Comment on above: Performed By: #### C THIERNO4U, [id number] #### [facility] [address] [place] [address] Dago Laurel Eosinophils/100 WBC (Bld) 1.0 % Normal 0.9-7.0 The [facility] Comment on above: Performed By: #### C THIERNO4U, [id number] #### [facility] [address] [place] [address] Dago Laurel Erythrocyte distribution width (RBC) [Ratio] 12.6 % Normal 11.0-15.0 The [facility] Comment on above: Performed By: #### Janneth PA4U, [id number] #### [facility] [address] [place] [address] Adgo Laurel Hematocrit (Bld) [Volume fraction] 34.1 % Critically low 36.0-48.0 The [facility] Comment on above: Performed By: #### C NADYAA24U, [id number] #### [facility] [address] [place] [address] Dago Laurel Hemoglobin (Bld) [Mass/Vol] 11.4 g/dL Critically low 12.0-16.0 The [facility] Comment on above: Performed By: #### Janneth REA24U, [id number] #### [facility] [address] [place] [address] Dago Laurel IG # 0.02 10e3/ul Normal 0.00-0.03 [facility] Comment on above: Performed By: #### C REA24U, [id number] #### [facility] [address] [place] [address] Dago Laurel IG % 0.3 % Normal 0.0-0.5 [facility] Comment on above: Performed By: #### C REA24U, [id number] #### [facility] [address] [place] [address] Dagocolleen Barragan LYMPH # 0.9 103/ul Critically low 1.2-3.8 [facility] Comment on above: Performed By: #### C REA24U, [id number] #### [facility] [address] [place] [address] Dago Barragan Lymphocytes/100 WBC (Bld) 16.0 % Critically low 20.5-60.0 [facility] Comment on above: Performed By: #### C REA24U, [id number] #### [facility] [address] [place] [address] Dago Barragan MANUAL DIFF REQ NO Normal [facility] Comment on above: Performed By: #### C REA24U, [id number] #### [facility] [address] [place] [address] Dago Barragan MCH (RBC) [Entitic mass] 30.6 pg Normal 26.7-34.0 [facility] Comment on above: Performed By: #### C REA24U, [id number] #### [facility] [address] [place] [address] Dago Adamsen MCHC (RBC) [Mass/Vol] 33.4 g/dL Normal 29.9-35.2 [facility] Comment on above: Performed By: #### C REA24U, [id number] #### [facility] [address] [place] [address] Dago Adamsen MCV (RBC) [Entitic vol] 91.7 fL Normal 81.0-99.0 [facility] Comment on above: Performed By: #### C REA24U, [id number] #### [facility] [address] [place], [place] [id number] Dago Laurel MONO # 0.3 103/ul Normal 0.3-0.8 [facility] Comment on above: Performed By: #### C REA24U, [id number] #### [facility] [address] [place], [place] [id number] Dago Laurel Monocytes/100 WBC (Bld) 4.9 % Normal 1.7-12.0 [facility] Comment on above: Performed By: #### C REA24U, [id number] #### [facility] [address] [place] [address] Dago Laurel NEUT # 4.6 103/ul Normal 1.4-6.5 The [facility] Comment on above: Performed By: #### C REA24U, [id number] #### [facility] [address] [place], [place] [id number] Daog Laurel Neutrophils/100 WBC (Bld) 77.5 % Critically high 43.0-75.0 [facility] Comment on above: Performed By: #### C REA24U, [id number] #### [facility] [address] [place], [place] [id number] Dago Laurel Platelet mean volume (Bld) [Entitic vol] 9.1 fL Critically low 9.5-13.5 [facility] Comment on above: Performed By: #### C REA24U, [id number] #### [facility] [address] [place], [place] [id number] Dago Laurel PLT 151 103/ul Normal 150-450 [facility] Comment on above: Performed By: #### C REA24U, [id number] #### [facility] [address] [place], [place] [address] Dago Laurel RBC 3.72 106/ul Critically low 4.20-5.40 The [facility] Comment on above: Performed By: #### C REA24U, [id number] #### [facility] [address] [place], [place] [id number] Dago Laurel WBC 5.9 103/ul Normal 4.0-11.0 [facility] Comment on above: Performed By: #### C REA24U, [id number] #### [facility] [address] [place], [place] [id number] Dago Barragan CREA 24 HR URINEon 1 CREA, 24 HR UR 1238.68 mg/24 hr Normal 800.00-1, 800.0 0 [facility] Comment on above: Performed By: #### C NADYAA24U, [id number] #### [facility] [address] [place] [address] Dago Laurel UR TOT VOL 775 ml/24 HR Normal [facility] Comment on above: Performed By: #### C THIERNO4U, [id number] #### [facility] [address] [place] [address] Dagocolleen Barragan URINE CREAT 159.83 mg/dL Normal 20.00-300.00 [facility] Comment on above: Performed By: #### C THIERNO4U, [id number] #### [facility] [address] [place] [address] Dago Barragan CREATININEon 06-01-2021 Creatinine [Mass/Vol] 0.61 mg/dL Normal 0.52-1.04 [facility] Comment on above: Performed By: #### C THIERNO4U, [id number] #### [facility] [address] [place] [address] Dago Laurel EGFR-AF SOUTH AFRICAN >60 Normal >=60 [facility] Comment on above: Performed By: #### C REA24U, [id number] #### [facility] [address] [place] [address] Dago Laurel EGFR-NON AF S[place]TH AFR[place] >60 Normal >=60 [facility] Comment on above: Performed By: #### C NADYAA24U, [id number] #### [facility] [address] [place] [address] Dago Barragan GLUCOSE - 1HRon 06-01-2021 Glucose [Mass/Vol] 86 mg/dL Normal 74-106 [facility] Comment on above: Performed By: #### C THIERNO4U, [id number] #### [facility] [address] [place], [place] [id number] Dago Barragan GLYCOHEMOGLOBIN A1Con 2020 ADA RECOMMENDATION ADA THERAPEUTIC TARGET 6.0 - 7.0 ACTION SUGGESTED > 7.0 Normal [facility] Comment on above: Performed By: #### C REA24U, [id number] #### [facility] [address] [place] [address] Dago Barragan Glucose [Mass/Vol] 82 mg/dL Normal [facility] Comment on above: Performed By: #### C REA24U, [id number] #### [facility] [address] [place] [address] Dago Barragan HbA1c (Bld) [Mass fraction] 4.5 % Normal <=6.0 [facility] Comment on above: Performed By: #### C REA24U, [id number] #### [facility] [address] [place] [address] Dago Adamsen LDHon 06-01-2021 LDH 114 U/L Critically low 122-222 [facility] Comment on above: Performed By: #### L DH, PREGQNT, URIC, BUN, ALT, AST, CREA, TSH #### [facility] [address] [place] [address] Dago Barragan PREG QUANT HCGon 06-01-2021 HCG QUANT 82193 mIU/mL Normal [facility] Comment on above: Performed By: #### L DH, PREGQNT, URIC, BUN, ALT, AST, CREA, TSH #### [facility] [address] [place] [address] [facility] RANGE SEE BELOW Normal [facility] Comment on above: Result Comment: 5-50 0-1 WEEK 40-300 1-2 WEEKS 100-1,000 2-3 WEEKS 500-6,000 3-4 WEEKS 5,000-200,000 1-2 MONTHS 10,000-100,000 2-3 MONTHS 3,000-50,000 2ND TRIMESTER 1,000-50,000 3RD TRIMESTER Performed By: #### L DH, PREGQNT, URIC, BUN, ALT, AST, CREA, TSH #### [facility] [address] [place] [address] Dago Barragan PROTEIN 24HR URINEon 021 T PROT, 24 HR UR 117.0 mg/24 hr Normal 42.0-225.0 [facility] Comment on above: Performed By: #### C REA24U, [id number] #### [facility] [address] [place] [address] Dago Barragan UR PROT 15.1 mg/dL Critically high <=12.0 The [facility] Comment on above: Performed By: #### C REA24U, [id number] #### [facility] [address] [place] [address] Dago Barragan SGOTon 06-01-2021 AST [Catalytic activity/Vol] 11 U/L Critically low 14-36 [facility] Comment on above: Performed By: #### L DH, PREGQNT, URIC, BUN, ALT, AST, CREA, TSH #### [facility] [address] [place] [address] Dago Barragan SGPTon 06-01-2021 ALT [Catalytic activity/Vol] 11 U/L Normal 9-52 [facility] Comment on above: Performed By: #### L DH, PREGQNT, URIC, BUN, ALT, AST, CREA, TSH #### [facility] [address] [place] [address] Dago Barragan TSHon 06-01-2021 TSH 0.523 uIU/mL Normal 0.470-4.680 [facility] Comment on above: Performed By: #### L DH, PREGQNT, URIC, BUN, ALT, AST, CREA, TSH #### [facility] [address] [place] [address] Dago Barragan TSH RANGE SEE BELOW Normal [facility] Comment on above: Result Comment: <0.3 4 UIU/ml HYPERTHYROID 0.34-5.60 UIU/ml EUTHYROID >5.60 UIU/ml HYPOTHYROID Performed By: #### L DH, PREGQNT, URIC, BUN, ALT, AST, CREA, TSH #### [facility] [address] [place], [place] [address] Dago Barragan TYPE AND SCREENon 06-01-2021 TYPE AND SCREEN Negative Normal [facility] Comment on above: Performed By: #### C REA24U, [id number] #### [facility] [address] [place], [place] [address] Dago Barragan URIC ACID SERUMon 06-01-2021 Urate [Mass/Vol] 2.6 mg/dL Normal 2.5-6.2 [facility] Comment on above: Performed By: #### L DH, PREGQNT, URIC, BUN, ALT, AST, CREA, TSH #### [facility] [address] [place], [place] [address] Dago Barragan Clinical Note 10-05-2021 Note Date & Type Note Facility 10-05-2021 Note [facility] [place], [place] NAME: DEBBIE NARAYANAN DATE OF : MEDICAL REC#: [id number] COMPANY PILOT: [id number] ADMIT DATE: 10/05/2021 05:28:00 [employer] DATE: 10/05/2021 10:00 DICTATING PHYSICIAN: GUDELIA FLORENCE DICTATION DATE: 10/05/2021 09:00 OPERATIVE NOTE OPERATION DATE: 10-05-21 ANESTHETIC:Spinal with Duramorph. SUPPORT ARCHITECT:EULALIO Eastman PREOPERATIVE DIAGNOSIS: 1. Intrauterine at 39 weeks. 2. Previous Caesarean section x2. POSTOPERATIVE DIAGNOSIS: 1. Intrauterine at 39 weeks. 2. Previous Caesarean section x2. 3. Extensive lysis of adhesions of the uterus and anterior abdominal wall. PROCEDURE NAME:Repeat low transverse Caesarean section (extraperitoneal) BLOOD LOSS: 700 mL. URINE OUTPUT: Yellow and clear. FINDINGS: Viable infant, Apgars 9at 1 and 9 at 5. Weight unknown at this time. SPECIMEN:Placenta. PROCEDURE: Patient was taken back to the Operating Room where she was given a spinal anesthesia with Duramorph without difficulty. She was prepped and draped in the normal sterile fashion. A Pfannenstiel skin incision was then made 2 cm above the symphysis pubis and carried down to underlying rectus fascia using a Bovie. The fascia was incised in the midline and extended laterally using Marcum scissors. Two Reji clamps were placed on the superior aspect of the fascia and dissected off the underlying rectus muscles. The same was performed on the inferior aspect as well. The muscles were then in the midline. Peritoneum could not be definitively identified. adhesion of the uterus from the anterior abdominal wall was gently performed until the bladder blade could be inserted, Once there was felt to be enough of a window created, incision on the low uterine segment was performed. A low transverse incision was made on the patient's uterus and extended laterally digitally. The infant was then delivered atraumatically after the bladder blade was removed in the cephalic position. The cord was clamped and cut. Cord blood was obtained. The infant was handed off to awaiting team. The patient's placenta was spontaneously delivered. . The uterus was cleared of all clots and debris. The bladder blade was reinserted. The patient's uterine incision was closed using #0 Vicryl in a running lock fashion. Excellent hemostasis was assured. The patient's was copiously irrigated using warm saline. Again excellent hemostasis was assured. after vitasure and surgaseal was placed. . The patient's fascia was closed using #0 Vicryl in a running fashion. The patient's skin was closed using phillip. The patient tolerated the procedure well. Sponge, lap, and needle counts were correct x2. The patient was taken to the Recovery Room in stable condition. Electronically Authenticated and Edited by: Gudelia Florence DO on 10/05/2021 11:21 PM [facility] Signed and Approved by: DR GUDELIA FLORENCE . 10/05/2021 23:21:00 [facility] Summary Purpose Family History No Family History Records FoundNo Family History Records Found Advance Directives No Advanced Directives Records FoundNo Advanced Directives Records Found Additional Source Comments INFORMATION SOURCE (unrecogn ized section and content) DATE CREATED AUTHOR 05/29/2022 [facility] DATE CREATED AUTHOR AUTHOR'S ORGANIZ ATION 03/20/2024 [facility] FOR RECORDS PERTAINING TO PATIENTS WHO ARE OR HAVE BEEN ENROLLED IN A CHEMICAL DEPENDENCY/SUBSTANCEABUSE PROGRAM, SOME INFORMATION MAY BE OMITTED. This clinical summary was aggregated from multiple sources. Caution should be exercised in using it in the provision of clinical care. This summary normalizes information from multiple sources, and as a consequence, information in this document may materially change the coding, format and clinical context of patient data. In addition, data may be omitted in some cases. CLINICAL DECISIONS SHOULD BE BASED ON THE PRIMARY CLINICAL RECORDS. [facility] [employer] [facility]. provides no warranty or guarantee of the accuracy or completeness of information in this document.
[2024-04-12 07:03] LABS: Basophils Percent Auto 0.8 % (0.2-2.0); Eosinophils Absolute Auto 0.1 10^3/uL (0.0-0.7); Eosinophils Percent Auto 1.6 % (0.9-7.0); Hemoglobin 11.1 g/dL (12.0-16.0); Lymphocytes Absolute Auto 1.7 10^3/uL (1.2-3.8); Mean Corpuscular HGB Conc 31.7 g/dL (29.9-35.2); Mean Corpuscular Hemoglobin 27.3 pg (26.7-34.0); Mean Platelet Volume 9.7 fL (9.5-13.5); Monocytes Absolute Auto 0.4 10^3/uL (0.3-0.8); Monocytes Percent Auto 7.2 % (1.7-12.0); Neutrophils Absolute Auto 2.8 10^3/uL (1.4-6.5); Neutrophils Percent Auto 56.4 % (43.0-75.0); Platelet Count 172 10^3/uL (150-450); Red Blood Count 4.07 10^6/uL (4.20-5.40); Red Cell Distribution Width 13.4 % (11.0-15.0)
[2024-04-12 07:18] LABS: HCG Quantitative <1 mIU/mL
[2024-04-12] MEDS: LACTATED RINGER'S SOLUTION 1,000 ML 50 ML IV ×2 (07:22→09:04)
[2024-04-12] MEDS: MEPERIDINE HCL/PF 25 MG/ML VIAL IVP (08:48)
--- NOTE | 2024-04-12 09:11 | P.ON_ITS ---
Brief Operative Note Date of procedure: 04/12/24 Pre-op diagnosis general: pelvic pain Post-op diagnosis: same as pre-op Procedure: NAME OF PROCEDURE: [diagnostic laparoscopy ] findings-adhesion of uterus to anterior abdominal wall PROCEDURE: The patient was taken back to the Operating Room where she was placed in dorsal lithotomy position after given general anesthesia. The patient was prepped and draped in normal sterile fashion. A sponge stick was placed into the patient's vagina. Attention was turned to the patient's abdomen, where a small umbilical incision was made. The fascia was tented using Reji clamps and the fascia was entered sharply. Confirmation of intraabdominal placement of the 10 mm port was confirmed under direct visualization using a laparoscope. The patient's abdomen was then insufflated using CO2 gas with approximately 4 liters. A second port was placed left laterally, this was done under direct visualization with a 5 mm port. Survey of the patient's abdomen demonstrated normal liver and gallbladder. Survey of the patient's pelvic anatomy demonstrated normal appearing rt and lt ovary and tubes as well as normal appearing uterus. No endometrial implants could be noted, no evidence of any pelvic disease was seen, normal appearing pelvic cavity. All instruments were removed from the patient's abdomen. The patient's abdomen was deinsufflated of CO2 gas. The patient tolerated the procedure well. Sponge stick was removed from the patient's vagina. The patient's infraumbilical fascia was closed using #0 Vicryl on a GI needle. The patient's skin was closed laterally and infraumbilically using 4-0 Vicryl. The patient tolerated the procedure well. Sponge, lap and needle counts were correct x 2. The patient was taken to Recovery Room in stable condition. please note significant adhesions of uterus to the anterior abdominal wall Anesthesia: MARVEL Surgeon: Tim Florence Certified Ophthalmic Surgical Assistant: Hope Norton Estimated blood loss (mL): 5 Pathology: none sent Condition: stable Disposition: PACU Urinary Catheter Management Urinary Catheter Management Urethral: Cath placed during this visit: no
[2024-04-12] MEDS: HYDROCODONE/ACET 5-325 MG TABLET 1 TAB PO (09:25)
== END 2024-04-12 10:20 | disposition home or self-care (01) ==
PROVIDERS: Visit Provider Obstetrics & Gynecology
PROC: (CPT 840; principal; 2024-04-12 08:00)
DX: R10.2 Pelvic and perineal pain (principal); N73.6 Female pelvic peritoneal adhesions (postinfective); Z87.891 Personal history of nicotine dependence; K21.9 Gastro-esophageal reflux disease without esophagitis
CPT/HCPCS: 49320; 36415; 84702; 85025; J1094; J2704

== ENCOUNTER 2024-07-15 20:14 | Outpatient (REF) | payer OTHER, SELFPAY ==
--- OUTSIDE RECORDS SUMMARY | 2024-07-15 20:18 | XMS_ITS | CCD ---
Author Organization [facility] [employer] Care Team Providers Care Alternative Education Teacher Name Role Phone ARETHA ARELLANO Attending Unavailable [...] CHANTELL, DR GALEAS Attending Unavailable CHANTELL, DR GALAES Admitting Unavailable MISC, DR RAMIREZ Primary Care [...] Unavailable MISC, DR RAMIREZ Primary Care Unavailable Provider, None Primary Care Unavailable KULDIP WARNER Attending Unavailable KULDIP WARNER Admitting Unavailable Gigi Adkins Attending Unavailable Gigi Adkins Admitting Unavailable Provider, None Primary Care Unavailable GUDELIA FLORENCE Attending Unavailable GUDELIA FLORENCE Attending Unavailable GUDELIA FLORENCE Attending Unavailable PASHA HARLEY Attending Unavailable GUDELIA FLORENCE Attending Unavailable Problems Active Problems Problem Classification Problem Date [...] OF COVID-19] Onset: 10-12-2021 Unclassified (1 source) OT SPCF DIS/COND COMPL CHILDBIRTH; Translations: [OTH SPCF [...] [CONTACT W/AND (SUSP) EXPOS COVID-19] Onset: 10-02-2021 Results Test Name Value Interpretation Reference Range Facility Coding Summaryon 05-28-2024 Coding Summary HTMLBase 64 BkvorxzfFDw8mTc+PGhlY WQ+WM3VFZMgZ84nrKMwgR 9kD7NFZJlNVsdpLHOWXCs ZQrSixyAwFC0lsAKqOSLp IC8+TT9dQBJvIcnzoDFjw 6F8eEB6S45gzp6iNGhuvC P4SVNePlMbwxsxg5uvzGv 6IDcuNmluOyBt CNAolS43KJS7aT38Mo78a EGsnIOew5ewaYx3SdBaUE BcXCJ5dDigEVcue8InGMG fK18xzDNac0D8 VUXtzAhjpEZmXoIfiCA5n D9pPVecfpbjc1ncsndhUk e7kc26sYBfr8Y5tJU9H6B asfZ1FZNspCHh AgrjiWQLcL0lxinfz6wka uppJvAaYGZbLZg4GXh5RO LyuOmjYyShNO58ZSD9CCV xfqQdL6RmTNIi cGhkUvR9e2L9Ma0ZU9BCH xouN1EUPXCPXJxmnQV+PC 71va59P6TuLzooEkr7VLK dPFQ7iTG4hI9j GPZeCNvvq2G4dFV3U1Jxh oNdrt8od6kqUZCgZTgtN9 6saHNsx4H7RBEinFJ8RIN kqMxmLlJguR85 Oyc+BDWdhQiok8LhSqrjc 8fbz1txoDq6JeqrIQNjig KknYbvJMD8y5SzZp3gBNR qfZR8aBS1zI9v HiTaZpH5GPbtB749BpRjw NJxNoowK20fW5QohER+PH RaSgn0EDBxmAktPZ4bP5Y hZGRpbmctbGVm jHryTT1hYHZxbcamFIZwv E1mOVXkQ6n0PwFvDmK8BY tjZ2KwMFEiqndwIj31jP0 tIfObHgO7DKba Z7GxwvJ8VBHbcYQqEBxqN EJ7N16tq2X5HBOpQFEkCQ C6vXQ7qC8osNehyirlsQV mdDsgdmVydGlj VDdwPYckO988APSgnTgeR kNvZGluZyBEYXRlOiAgMD cvMjMvMjAyNDwvdGQ+PHR oSJT5oDoeICQg dJOoLWotDe7vxHxigJuwI K8eQTAdopebPVYbqO7aFO NkiMRjoSrqYM4yIIOgtly la386DvHpISV9 NAPfvBQfR0DqxY2gJoMmZ FTsBVWbV8GikBCkGGhaM7 79SRojFaM2UFMkffVfL6P sLWFsaWduOiB0 k8J3Pn2Gt1RdbqyuN3Xdf ITuFrImDplnHHv9X4YaSn wvdHI+AM24IYMcFR72LNf 6SOL2dUjtPWxy FWAxF4CpzY5pDuLcSUHzM GRkOyc+PHRhYmxlIHdpZH RoPScxMDAlJyBzdHlsZT0 lGb3wPVPmRQXi xYldiUYhYcQfd8fkLDPuK LyfTZ8kqHmqI2OhzJH6LW Ycc7m5Bn74U76yD0NqbDG +BUQapRY4iEW9 hE8fEmVrKzX0FVviV570L tLvcAYbRhqge5olr3xagG e6YmL9BSQcpuTxaDmdUXY 5u5ZmZs61S63v IHdpZHRoPSIxNSUiIHZhb Lkdrz1vgL9yYb6+PGNvbC S6xZD2fE0zTtTwBjF4WFw zK562SzYzgBSu Csalh0oyl7hgkPf8AdKzM GDhryNbvTimVJL8d2VuNj 83H2IjxHvif4GmKua4js8 7vFZna4R3kIO9 L9PoASSzkyayaFPxpTwgA D3qRGWxggrgJECckI9pAW JvL9k2BwAdPiK3IVieG7L azjX7ERJerGEt JNYmbOGSqB2qcbuus2gnm mijYjXtIGZwWKe1TIv2JS SyhFdjSrRvWIK8MnM8CIN 0fVWlcN0wsCkd uqapiK8nMaj+MJC0ySFnb ERCZQ7tGvjakNO+PHRkIH W9aYluGTqyLPAcoO9xEQX jN8r1OiMiLiU2 TGpuV0FlfkZ9YHIesOHoI IGngFIVjM4lobufc1keeq yvQhVvICHmWZj2QEt4VUV saWduOiBsZWZ0 YjK0RXC3aBKxlD7ahVqvq kniaD6gVup+QmlydGggRG K7QSr1R2KlOkv0MVJnuXf bOI1hgTXzLLvh Ya9kqPuqxJbeYI7rTZMiv alqm381YgUge6tvLLOreU QqZZgbPVP4T58gv6K4PFA zLQXeECK4gIT1 kD4rsViytdslbSVznZtty xIjnJnaAYycPSrrB024LD LgaIdrQuUlOOq1K3WfZvu 3HYAvkUvyCH4f zAOaZGnxKn4mkDopbTpfN H0lWFVykmyqw923GqRyd5 onOUQgxPYxWUubVFU6W49 up0D5UUMmGLUi VYQ2jYI9mA8rfPpcmvqss GVmdDsgdmVydGljYWwtYW ccW826SCUkcYsgUqZjdKz 9X0DaSdh4MQNk vGhhFC6abVCfHNozXk7ej NpjjMhsUK8uQHLgynyqm3 23KaHxs9sgOBErlAPiGEm bKVA2R52hr1T8 FNUoZSScORI8jTI0mO5oz GlnbjogbGVmdDsgdmVydG amYHcmDWlhZ929FQUnmEq nPlBhdGllbnQg SHdjPTe2B4MlNqfpcGK+P W03EFGpWV80tFWahDBcp5 fizFu5OlDiCIXoBHL2lIa fOEyrh4KoLPEn G79pzWSar0K9WWNjxSwwq PAoYsOveIX0eE8oAOcwlk ucx9omoxtsWyvcp4fnfd0 4pF66X94dJEoq ZHRoPSIzMCUiIHZhbGlnb l1osY4mLw3+MIOjjUJ3uW D7eZ1jTBAhTfW6BSbtR14 9InRvcCIvPjxj o1wio6oweWc9OfX8ANCpu zMczFmwXNP2r8QqGs27Y7 9sIHdpZHRoPSIyMCUiIHZ gqHrkfh9kgC3d Ii8+GVUbkYQ5pAL0fH9nV rHrZdN8CZmwP841OlWilD GnCnjbG23nI7ObiLM+PHR wYqq5IFKjhDtv SZ7qrXOkVPekRk4sDAI9Q dFlXgQtCRnvD7JaKFJbcv uxayyovPT5NSTzLBQzwT9 4Fy1olLxgJARs oSCCeE6dhfdbs7yhyhrmF wBiEEIyGLy6RTb6FIZicN avGfLmUDC9GsO0TVC8fHC pvS4jjAppfavi kK7nU8AxNRJfnoenIq11p D0cMjHuCiQ7CWsrJvx+SF OIDrBWCDOQBTSZML6iE3Q DGLNEGN14BT23 sTQuo4S5oUU1X6PeEOCkm mhuadcgiRK6KYRyMHFtcR 41hJLcECmtXi6pz5G4n11 8AZChZQZgnW69 Wi0vfVbaNTTyvFQSqD3ip hhpj0smhjkcBnQiVNMjTM s6YHf7IEYosHbjYoGdVEI 8ZvW2SCD8lVGp xT6mrNhxzwlrkG0gRjy+M JyxNDOrUMy3PAvyoNC+PH OsEQM4kIauARxxWPFvnC8 oVPYgI6u8MiBf OuZ0JOuwE4JpMOAzcaysA q84jB2sBeZtEiA2OIhlD4 MzdgR9PUUkjQPnQEboBYS 6P73cc1S5DPCv TZTxRZS3qBJ2gD6ohSvnk jogbGVmdDsgdmVydGljYW fdNSzlG877QWQlbEjoChI 5RFgdGOQjGJ88 VQ81qVJre9K7qJC2V0BqW WWsvvmpfxrruMD3FAGdHA AfyF13kPLvSMpfRz9eo6R 9w575EHHnWIBp aM19Li4jbXrrAHDbfGYWu T5jmzdox9mgeedzLgMkHH LkBSf5RJs2NRAbsDyoExV oFAW7OkK4GMU2 bYUnaX9mlMcrappdiH4dF yc+AdBLMFsMXM11WC43yC Etq6M9sDC8Y0ToQLGqykc svxvngKK3QPXg IZXegF82uYGiNNnyWw6zk 7L8g646QZSaWXTwjO17Qb 5gaLpnKDOllCNZrZ5uxli es7jwcvmqHjMu EODaNSf3UHm9KCAamCpoB cJeWML4VuW7KUK3mFBaiA 5haYdibibrsT7aNfl+T1A 8T3HwFcckeLU+ RI39SWHePI09jCVcsGKzl 0bouPw9PzRwYULbNMN8bA xxZTvvz0IlQUXoO05aeDB it3A9ZXVzpCqt lPVqBkTitEJ9fO6uRWjzf okzb3fybbucMpfdm1uotk 18iV95K37mQKapXIHgQXD zMCUiIHZhbGln lg1hoI6dHi9+BRTecNW5c OE4dJ1hGcXjEkU3BAamT2 56DxAblFMlYpepx0jwf6x ltJe9AeVfIGYe nuHggKnhUBL9t3VxTg23D 29sIHdpZHRoPSIyMCUiIH SndRrles2cnM0fLy0+PC9 as0mayc44rQ56 dHI+LPTjDGL6uBuiHBsoL VKlpJ3fYHqbHmM9EIRpDo RpnW28fITgMIqjHf9bbIo reQclZO7rMAYf pnxxq177BzSyg1eoNUIfz UGtVXywBTU7U93gt9D6PI VeMTJgOYY7gRY5zE7xsTr nbjogbGVmdDsg fpGjzZhuLQnvOJfuC409S MNtpMwkUpWqkLUjT8krip BKQS9rZvbgbUP+PHRkIHN 0eWxlPSdwYWRk nJ7yPDCoO6k0NfQsIsA5T QgtX6JpbrW4YXFqhZHrFI AinNLWeZ0atymus0zttxb gIzAwMDAwMDt0 TEu9FRPbrTxmQgMvPKO5N eY5TIK1dFTixZ7cxXprom ffcF5mWpr+RklOOjwvdGQ +YLSlKTW6iBdg PPtaEFGxvZ5kVCJyU4v6A dPiYkZ6RYvwP2IuauW8LW IarZXhMSUvpYQSsW8dbyx qo5nfqjdwIdHt CMVuEXp1YRp8BDSapNidD bRdIOP8OpO3PAO2cWDrkE 4bcIfmjggojX8rFzy+TVJ OOjwvdGQ+PHRk FMR3qXibCTqyRIDoyT1aK CVoD5m3PaCoWmG2ORueZ5 BalxS0UCDqvYNbXLNyeFI QjU3hnwuoc0zs lijwIoNfLUZmQRz5ARv1F MNzmQtjUkEzMDI7GrW5FN L4tSLmqH9boNivsnmlhF0 wOyc+RMU6UZP9 GD97QP90O9NtPtfclJOuk +PHRhYmxlIHdpZHRoPS xpHXKjOqQudZntHO8nLp7 yZGVyLWNvbGxh cHN (more content not included)... Normal [facility] ED Clinical Summaryon 2023 ED Clinical Summary [facility] ? Urgent Care [address] [place] [id number] Clinical Summary PERSON INFORMATION Name: DEBBIE NARAYANAN SUMMER Age: 28 Years Sex: FEMALE : 1995 MRN: Acct#: Visit Reason: Medical screening exam; [facility] F/U LFT HAND Arrival: 05/15/2024 11:06:13 Discharge: 05/15/2024 11:35:00 LOS: 000 00:29 Check In: 05/15/2024 11:06:13 Checkout: 05/15/2024 11:35:00 Address: [facility] [place] [address] PCP: Provider, None PROVIDER INFORMATION Provider Role Assigned Unassigned KULDIP WARNER ED PA 05/15/2024 11:07:07 Beth Jimenes MA ED Nurse 05/15/2024 11:13:04 VITALS INFORMATION Vital Sign Triage Latest Temperature Tympanic Temperature Temporal Artery Pulse Rate O2 Sat 98 % 98 % Respiratory Rate Blood Pressure /70 mmHg /70 mmHg MEDICAL INFORMATION Medications Given: Allergy Information: No known allergies PHYSICIAN DOCUMENTATION DISCHARGE INFORMATION: Discharge Disposition: Home Discharge Location: Home PATIENT EDUCATION INFORMATION Instructions: Wound Care, Adult Follow-Up: With: Address: When: [facility] Occupational Health Within As needed Comments: Contact occupational health if you are having any subsequent issues with wound healing or signs of infection such as redness spreading around the area, red streaking down your finger, pus coming from the wound or any other problems. Keep this area clean with soap and water daily and small bacitracin on this daily. DIAGNOSIS: Laceration of left index finger Patient Understands: Yes - Patient/family/[facility] verbalizes understanding of instructions given Comment: Normal [facility] ED Patient Summaryon 024 ED Patient Summary [facility] ? Urgent Care [address] [place] [id number] PATIENT DISCHARGE INSTRUCTIONS Patient Information Name: DEBBIE NARAYANAN SUMMER Age: 28 Years Date of : 1995 Reason For Visit: Medical screening exam; [facility] F/U LFT HAND Arrival Time: 05/15/2024 11:06:13 Primary Care Physician: Provider, None Attending Physician: KULDIP WARNER Comment: Patient Education With: Address: When: [facility] Occupational Health Within As needed Comments: Contact occupational health if you are having any subsequent issues with wound healing or signs of infection such as redness spreading around the area, red streaking down your finger, pus coming from the wound or any other problems. Keep this area clean with soap and water daily and small bacitracin on this daily. Wound Care, Adult Taking care of your wound properly can help to prevent pain, infection, and scarring. It can also help your wound heal more quickly. Follow instructions from your health care provider about how to care for your wound. Supplies needed: ? Soap and water. ? Wound cleanser, saline, or germ-free (sterile) water. ? Gauze. ? If needed, a clean bandage (dressing) or other type of wound dressing material to cover or place in the wound. Follow your health care provider's instructions about what dressing supplies to use. ? Cream or topical ointment to apply to the wound, if told by your health care provider. How to care for your wound Cleaning the wound Ask your health care provider how to clean the wound. This may include: ? Using mild soap and water, a wound cleanser, saline, or sterile water. ? Using a clean gauze to pat the wound dry after cleaning it. Do not rub or scrub the wound. Dressing care ? Wash your hands with soap and water for at least 20 seconds before and after you change the dressing. If soap and water are not available, use hand stem crusher. ? Change your dressing as told by your health care provider. This may include: ? Cleaning or rinsing out (irrigating) the wound. ? Application of cream or topical ointment, if told by your health care provider. ? Placing a dressing over the wound or in the wound (packing). ? Covering the wound with an outer dressing. ? Leave stitches (sutures), geoff, skin glue, or adhesive strips in place. These skin closures may need to stay in place for 2 weeks or longer. If adhesive strip edges start to loosen and curl up, you may trim the loose edges. Do not remove adhesive strips completely unless your health care provider tells you to do that. ? Ask your health care provider when you can leave the wound uncovered. Checking for infection Check your wound area every day for signs of infection. Check for: ? More redness, swelling, or pain. ? Fluid or blood. ? Warmth. ? Pus or a bad smell. Follow these instructions at home Medicines ? If you were prescribed an antibiotic medicine, cream, or ointment, take or apply it as told by your health care provider. Do not stop using the antibiotic even if your condition improves. ? If you were prescribed pain medicine, take it 30 minutes before you do any wound care or as told by your health care provider. ? Take xjkt-qbf-lxbfhqw and prescription medicines only as told by your health care provider. Eating and drinking ? Eat a diet that includes protein, vitamin A, vitamin C, and other nutrient-rich foods to help the wound heal. ? Foods rich in protein include meat, fish, eggs, dairy, beans, and nuts. ? Foods rich in vitamin A include carrots and dark green, leafy vegetables. ? Foods rich in vitamin C include citrus fruits, tomatoes, broccoli, and peppers. ? Drink enough fluid to keep your urine pale yellow. General instructions ? Do not take baths, swim, or use a hot tub until your health care provider approves. Ask your health care provider if you may take showers. You may only be allowed to take sponge baths. ? Do not scratch or pick at the wound. Keep it covered as told by your health care provider. ? Return to your normal activities as told by your health care provider. Ask your health care provider what activities are safe for you. ? Protect your wound from the sun when you are outside for the first 6 months, or for as long as told by your health care provider. Cover up the scar area or apply sunscreen that has an SPF of at least 30. ? Do not use any products that contain nicotine or tobacco. These products include cigarettes, chewing tobacco, and vaping devices, such as e-cigarettes. If you need help quitting, ask your health care provider. ? Keep all follow-up visits. This is important. Contact a health care provider if: ? You received a tetanus shot and you have swelling, severe pain, redness, or bleeding at the injection site. ? Your pain is not controlled with medicine. ? You have any of these signs of infec (more content not included)... Normal [facility] Urgent Care Note- Provideron 05-15-2024 Urgent Care Note- Provider Patient: DEBBIE NARAYANAN Age: 28 years Sex: FEMALE : 1995 Associated Diagnoses: Laceration of left index finger Author: KULDIP WARNER Subjective Chief complaint 05/15/2024 11:17 EDT MEDICAL SCREENING [facility] F/[id number] . Occupational health Date of injury: 05/10/2024 Claim number: [id number] Employer: [employer] Diagnosis: Left index finger laceration Patient is a 28-year-old female presenting to occupational health for evaluation of left index finger laceration. Patient states on 05/10/2024 she was at work cutting yris when she slipped and cut into her left index finger. She states she cut the very end of her finger, denies any loss of motor function or sensation. States she went to the emergency department had glue placed on this area and was sent back home. Patient states the glue came off the next day, states that she has not been having any signs of infection, redness spreading around the area, pus coming out of the wound or any other problems. Indicates that this has been healing well. States she keeps this covered while she is at work and able to do a full job duties without any problems. Health Status Allergies: Allergic Reactions (Selected) No known allergies Problem list (past medical history): All Problems No Chronic Problems / Cerner NKP Objective VS/Measurements Vital Signs 05/15/2024 11:17 EDT Temperature Oral 36.2 DegC Apical Heart Rate 79 bpm Respiratory Rate 18 br/min Systolic Blood Pressure 124 mmHg Diastolic Blood Pressure 70 mmHg SpO2 98 % BP Method Automatic CONST: -Well-developed well-nourished. -Acute distress: No -Vitals: reviewed. SKIN: -Gross abnormalities: Healing laceration, approximately 1 cm, distal aspect of left index finger no surrounding erythema or signs of infection, no red streaking up the finger. CARD: -Rate and rhythm: Regular RESP: -Respiratory effort and chest excursion with respirations: Normal -Breath sounds equal bilaterally: Clear -Wheezes: No -Rales: No EXT: Gross appearance and use of all four extremities: Unremarkable -Full range of motion left index finger, capillary refills less than 2 seconds, sensation light touch is intact issues. NEURO: -Patient: alert -Oriented to: person, place and time. -Appearance and judgment: appropriate. Impression and Plan Assessment and Plan: Diagnosis: Laceration of left index finger ([id number] S61.211A). Indicated to the patient that laceration appears to be healing nicely and was completely healed, no signs of infection. I recommended continuing with general wound care, she was in agreement. Told to contact us if she is having any signs of infection or any worsening issues otherwise we would release her from occupational health at this time. Patient was in agreement. Patient will continue with full job duties. [Electronically Signed on: 05/15/2024 11:31 EDT] KULDIP WARNER [Verified on: 05/15/2024 11:31 EDT] KULDIP WARNER Normal [facility] Urgent Care [place] 024 Urgent Care Record [facility] ? Urgent Care [address] [id number] PATIENT DISCHARGE INSTRUCTIONS Patient Information Name: DEBBIE NARAYANAN Age: 28 Years Date of : 1995 Reason For Visit: Medical screening exam; [facility] F/U LFT HAND Arrival Time: 05/15/2024 11:06:13 Primary Care Physician: Provider, None Attending Physician: KULDIP WARNER Comment: Visit Diagnosis: Diagnoses This Visit Laceration of left index finger (S61.211A) Medical screening exam ([id number]) If you received any narcotics, sedation, or any other medication that causes drowsiness for the next 24 hours, unless otherwise directed: ? Do not drive a car. ? Do not operate machinery such as power tools, lawn mowers, drills, sewing machines, or stoves ? Avoid alcoholic beverages and drugs for allergies, nerves, or sleep ? Do not make important personal or business decisions or sign any legal documents With: Address: When: [facility] Occupational Health Within As needed Comments: Contact occupational health if you are having any subsequent issues with wound healing or signs of infection such as redness spreading around the area, red streaking down your finger, pus coming from the wound or any other problems. Keep this area clean with soap and water daily and small bacitracin on this daily. Medication Information: The exam and treatment you received today in the [facility] Urgent Care were for an urgent problem and are not intended as complete care. It is important for you to follow up with a doctor, nurse practitioner, or physician?s residential assistant for ongoing care. If your symptoms become worse or you do not improve as expected and you are unable to reach your usual health care provider, you should return to the Emergency Department, we are available 24 hours a day. For those patients who have received Radiology results, the interpretation of your X-ray as given to you by our Urgent Care physician is only a preliminary report. The Radiologist will review your films and if there is a change in the diagnosis you will be notified by phone. Please make sure you have provided a working phone number so we can reach you if necessary. In the event that you had a lab culture while you were a patient in the Urgent Care, you will be notified by phone if there is a need to change your antibiotic. Please make sure you have provided a working phone number so we can reach you if necessary. [facility] has provided you with a complete list of medications post discharge. Please inform your hot die press operator/provider of your visit and for further instruction on these medications. Any specific questions regarding your chronic medications and dosages should be discussed with your primary care physician(s) and/or pharmacist. Visit Information Allergies: Substance Reaction Symptoms Type Comments No known allergies Drug Vital Signs: Vitals and Measurements this Visit (last charted value for your 05/15/2024 visit) Vital Signs This Visit Temperature Oral: 36.2 DegC Apical Heart Rate: 79 bpm Respiratory Rate: 18 br/min Systolic Blood Pressure: 124 mmHg Diastolic Blood Pressure: 70 mmHg SpO2: 98 % Blood Pressure Method: Automatic Measurements This Visit Height/Length Measured: 167.64 cm Weight Measured: 68.95 kg Weight Dosin.950 kg Body Mass Index: 24.53 kg/m2 BSA Measured: 1.79 m2 Problems List: Problem Onset Comments No Problems found Patient Education Wound Care, Adult Taking care of your wound properly can help to prevent pain, infection, and scarring. It can also help your wound heal more quickly. Follow instructions from your health care provider about how to care for your wound. Supplies needed: ? Soap and water. ? Wound cleanser, saline, or germ-free (sterile) water. ? Gauze. ? If needed, a clean bandage (dressing) or other type of wound dressing material to cover or place in the wound. Follow your health care provider's instructions about what dressing supplies to use. ? Cream or topical ointment to apply to the wound, if told by your health care provider. How to care for your wound Cleaning the wound Ask your health care provider how to clean the wound. This may include: ? Using mild soap and water, a wound cleanser, saline, or sterile water. ? Using a clean gauze to pat the wound dry after cleaning it. Do not rub or scrub the wound. Dressing care ? Wash your hands with soap and water for at least 20 seconds before and after you change the dressing. If soap and water are not available, use hand stem crusher. ? Change your dressing as told by your health care provider. This may include: ? Cleaning or rinsing out (irrigating) the wound. ? Application of cream or topical ointment, if told by your health care provider. ? Placing a dressing over the wound or in the wound (packing). ? Covering the woun (more content not included)... [facility] Coding Summaryon 05-14-2024 Coding Summary HTMLBase 64 EosiefhrZGw4wFe+PGhlY WQ+IG4DZOJnL80adTLuaD 1gQ2OHTSlCDutdPWYUEFo HWqCosxKoUO5zjYQzOHRi IC8+MP0hKBTnPkdtiASih 0E6iEO2V48mtt9kRWvdjX J0IQDiBuApxlwte4daoGf 6IDcuNmluOyBt DVTweL53NQL6aH75Rr57h OGxfQJjs2dejGe2DzVyLX ThQFG4nKqzOAqkh9HrOAC aM79mbWZze4O8 IAVybJxwhBGsSvWzmGM7y O6zXUjvizxnw5fuqasfMl j6sw95uYMoz8I4pBY1T6U rfoL6CCYgsDRr SfmptZLOtV0jpurfp4rbw pqzRwKhGIErYKb9TKe5JL IxtPtmIjJvHK94UGT7GFV vhtAkJ2DbWKCv tPzlHgD0p8Y1Nc6KP3KUR tlsS0MTHHFIDLevjNC+PC 32dg49B3GzSpgmNow8EKJ jQHT0xCX2yD1q YGHgZTqxc1G2pZT7Z5Fzn aBfwh0xz1hkWJXqCHpyJ0 3lxQMjj2B5VFXqoLA9JFG ubKfkFnImnK35 Oyc+BBYkpFkvt6TlHnelc 9miq6sagLy5UvgcZLNxyx CecFlvOYZ9n8MoHd9uBIJ ypEK0rOT6pV7e SoJeYhZ7ERdfM648JgSkc BUkHagjP31oC7JqmTZ+PH CwEby9LUIldXetVD3xW4E hZGRpbmctbGVm yHmeKG7qRNHxkcwaQFOwh O0fPURhV5x0PlBmUoY4CX olD1VgEDMjdjfsQq09cD0 xKvZaTsD0ASdx L1VfpwA7DAYkpYKvPTqgZ WA0B33la1E1YFZoQPFfLN F2rHO7nI4xcPccjtiqfXK mdDsgdmVydGlj BTnkOSleT688CPTgbOdeK kNvZGluZyBEYXRlOiAgMD cvMDkvMjAyNDwvdGQ+PHR zLSR0fAyqCITa pNSkJVnqFq2ttJbqfYdqW D1uQKFnvblfPULfjW2fYM FlwFCtoGppCS1cLTZkafr ko099WfRgSTZ1 TCJyiLDaO4MktM9nKsHsW AZmYLAlD5ZxsEStMSipJ2 46IJoqKgW4ZMPllfMkI9S sLWFsaWduOiB0 y0T0Dw4Bl5OecscmJ4Ivr QDuTzToQcjiWPm3M7BnKh wvdHI+JH36SXHcHU02STu 1IMN4mJptWYul QGDwO8VbuS9hLuVoNEJrA GRkOyc+PHRhYmxlIHdpZH RoPScxMDAlJyBzdHlsZT0 uTx9lNDPhUBHi fBsfnNSoQpPot3scCVEeY EfuZK7wlKisL3PtsSC4TT Hsw9k5Ew85A32lY6GqoRY +KHGeiFH9hLF6 xF5gHgJjUuF5RMwfH613A nYrbAAiTrruv7zxb3ifnF l2WvF9FKJynlNzkWfwUJQ 2b8BiZu24M14d IHdpZHRoPSIxNSUiIHZhb Sxlth0qvQ7iGc5+PGNvbC O5cIR4wG8yVhNgLfE9BBc sN792CvLriITp Cqgsr9zpb7uajSu5BiShV TZepkNhhGxkKZG1u7XsSe 73J7DedDshh4YwBxo3oz8 4hNVct1P3zRT9 A4CaNKUklcqbrUCqrEclK R6qEWLzyltcSZPstH5xWX UwV7v6UnVpXtB2PIcrE4J lqiQ5LVJcsXHk TKRbfPBKpM7suirao3fwj vczJsReBMXkZBz0QHs1FD DzvUauOeTtZLX2RfB4BDB 8sQLkhH8htCsd xjkyyP7sKds+FIL7jEVuq TAWEF7fTikewDT+PHRkIH A4mKnnJOlsDHGhrA8sJPY kQ7n2NpDtAgN0 JMqjH4RzirT8JKViaTAwP EOvpIYIbP2yfkzls9aavz tdTbZeOFFlZJb0GCu7CNO saWduOiBsZWZ0 YaK5JBU8dWSctB8tzZvav ndktK1mGcl+QmlydGggRG L0QFc5Y7SqWkf5TWIikPv qJA3wzVNwIGow Yb1jbDraoSsqEV0rHIGqp jlrc322EgRtl2vkEYEceI GvSPmuBJX1T18es0J2RES qWGEoAKU5mBK1 nR5ddAiaorzgbBWjiLbvb wHzzVdoFEwbFWlrL295HV FugNluBbOsLTy2O1UtKma 0RFMpoGnkZJ4n rGOsZBfvIb2jjOlreIqxC Z4yQGEvuzmec506UiCjs0 pcERGxqJZlQHkyGOW0U75 ie0W2HCYgMXHx TDP9fPY4sR0ptRokqnptj GVmdDsgdmVydGljYWwtYW hfJ176SUZbfWfdNwRboCr 5C1ScZcx6CEBa dSwiBL5ukIWnFQbqAu5fo GajqXgeDS8kJRRjgubyn0 54TiOpv0kaMSCijCXmYVf dHLA4W38lf2Q5 GXWwWJInOWU9mEJ6qS6jh GlnbjogbGVmdDsgdmVydG qhARboNPbtS389SDYspKp nPlBhdGllbnQg DYvfDOf6Q7MvKdevtRR+P U35TBPmHQ10uHIhmMXkw0 znqGt6UgCeXRGkHLI6qYf nOUgaf9TdUNHu L02jkNUoo9Q4QMOwuManb CDvPfJnmND1kV6zMNtqxd ejw4hndbkwNzrrh6bqvf3 6gT90H27vMHnj ZHRoPSIzMCUiIHZhbGlnb r2ywM7pBt0+PWHqpPV2bQ V8mQ9uKYUbWiW8OMwbS17 9InRvcCIvPjxj r0xcd5wxnHg5MlT8MHEjw zLblIjaEYF9x8BcDv97V9 9sIHdpZHRoPSIyMCUiIHZ iuJocti5qlZ8m Ii8+GMYzrEN6pSA7kQ5iT vEvXpU8DZwsZ103DvFvgV FsKxkmL31xD8WrvRC+PHR hLub7OIMtaMji ZD6bmUIfLOukSu0gDEZ0L wUkMbSmECkvI5MpNPFyim baoavvlDM4EGDkIDLyfU6 5Cs6cmUwbOOCa tUDOkV0pgwuir7znvxfwL pLvTPAsRDk8OBr7VJKmlX roKiQeOTR5MeA2DXB0bGB klA6jfZmfoeiy aY6nI6PwFNOdkimlZw83d Z1eFjSdSuO3RHleJzd+SF COGoDYJNEPNYIEYH3sM6J [id number] tJPqn8Y0wPR9I5BnSTOll gowsyzrrVR4BJHjQTBdeR 73yBAeTPheCh3bh1S0q18 3OUGnITSybK62 Cf1mvKhxEXBlbKMUjB5du hsbo2eccqbpSuMkBIOcGJ x4POm5ZTVjiTssQdYaHPY 2TjQ4EMV0kTBv wW7wpIddyrajpO5lYnt+M CqdXCXxJTo6LGmndXR+PH MfLSX2aLpuSXmhIBFzyQ2 nBJMhV8x2EoOg JeL3MLmbA5UdFFJifffdU l61aO7dSvCnNtN2GEioA3 VtvxC8ATUryANyTTkxEHA 7A18sb8V6QOAy QHIaTWB5aKQ0zE6ehSaeb jogbGVmdDsgdmVydGljYW kpCApiE932WOTqvZxxWzR 2MGjnJURoZA41 QZ21tMZab1N6rYH4Z9RyH IAcfmjdkcshhGF9NOBuKB XydB89aWSnIDonTw4hq6A 3y354EIUaEGQj zP34Wx8nhWslPKZvgIWZy X0krmulk9caxoieFuMlWC KcTSh8JBt5IAJdnZhiWsD cPUK7HlP5RTP5 eMOhoC9bmYpvokgwiE6fX yc+FcFNJXdLJY52ZO08rQ Rfx6Q3fSM5P9FuBUSdqtl mnmzxqKG2DFZi XPFmlJ59kYUaABvfCr1cp 3U2z678WGZkKMPlgC28Ui 3acZluYFVdqXSRuI6pxuj cp5ewutecZrHj MZBhCFk7XAf7XKTcnWwzN zQlHDX6RwJ0QYF7nCHnrW 0cuVpxyylojE6wDle+RW1 hlfpfglB0EH02 EM45A6JfFoyqiOBctGY+P HRhYmxlIHdpZHRoPScxMD LkEdWiuDyzYK5dDa8jWME yLWNvbGxhcHNl MaYso0hpBRWcPJicBL0ka NtcB2ZigSB5KUEkv6t5Go 75U08cK2XzaME+PGNvbCB 3iHG1gX8nDhNq ZwL5IDzjU448JvVthVAnP ojen1zav7zonYl2UtQtPW ZaisDkbTngJOR5h1FuNn0 3Y95pUFidCSHg MNThEXIuPJDldKjszv6jt G9wIi8+YJQbzLF7vDR6mA 0oEaOfKsY9JRwyB169SaW hrIGaTkzqN63z T5AdiKB+IIGbUwp6ISJiy TpsWT4wvFMmBXixSp3rJK A6BbOfGlPgDDqrJ0RnWKW pbmctcmlnaHQ6 SUIhLQRqqS95Vd6uwDprR c2fFOLzVTM2WMAxuKOeM9 RllQ5jYqYvKHViQNJnN7E btJBbOJfcS379 MXpmKuK6UAWuqxGxK9FqV FHayIrpGzR3d6T5Fx2SgP oonVZiWO6vOoXhUDa1I4H sUrt0EDApjAsq PO1pkHToJYloSt7bqDzkq UojGL7hFIUvjdfln983Zx Jbq6ruTHIbwSDzPUwkMCZ 3L66kg0I1ZBUp LSYiEKA3sOZ9sU5ulVgtp jogbGVmdDsgdmVydGljYW tlFLstA524GWMknBrzWiN ZIlx0A9PwLoo5 SDXzeJraIB4fkDBfVWmdD a5bbAextCcwSI2sFENmva ypc242DqAzp9tlWHOirOP aWYwlHMH7I86n a0Y0VHWsSCEnNPC1vFC8z D7wrYqujxducRKwmWygqz JnxMpyEIohZMtyZ631OGZ lgGhlIl7GIhy7 O0EhQwa7GFBkbCboEQ1jl MLkJZdaLe1ykHdahYyoRJ 1rZXUekvady237WzKme0f kIDEwcHQgVGlt UHN2S19hw0A7IJBfDTEfM ZA0oEX9mW8fhKbycyfdxG VmdDsgdmVydGljYWwtYWx cR262BXBuuVqw PlBheWVyOjwvdGQ+PC90c e80V6TgNpyrQvz6IPUkMG S7yCR8jK8yOZIlIQtjz5G 4tRI9H5IgykTp ci1 (more content not included)... Normal [facility] ED Clinical Summaryon 2023 ED Clinical Summary [facility] - Emergency Department [address] [place] [id number] ED Clinical Summary PERSON INFORMATION Name: DEBBIE NARAYANAN SUMMER Age: 28 Years Sex: FEMALE : 1995 MRN: Acct#: Visit Reason: Finger laceration; FINGER CUT LT HAND INDEX FINGER Arrival: 05/10/2024 15:18:57 Discharge: 05/10/2024 17:33:00 LOS: 000 02:15 Check In: 05/10/2024 15:18:57 Checkout:05/10/2024 17:33:00 Address: [facility] [place] [address] PCP: Provider, None PROVIDER INFORMATION Provider Role Assigned Unassigned Margarita Carson [employer] Nurse 05/10/2024 16:33:25 Cuca Donaldson PA-C ED PA 05/10/2024 16:43:18 VITALS INFORMATION Vital Sign Triage Latest Temperature Tympanic Temperature Temporal Artery Pulse Rate O2 Sat 99 % 99 % Respiratory Rate 16 br/min 16 br/min Blood Pressure /81 mmHg /81 mmHg MEDICAL INFORMATION Medications Given: Allergy Information: No known allergies PHYSICIAN DOCUMENTATION DISCHARGE INFORMATION: Discharge Disposition: Home Discharge Location: Home PATIENT EDUCATION INFORMATION Instructions: Sutures, [place], or Adhesive Wound Closure Follow-Up: With: Address: When: Follow up with primary care provider Within 3 to 5 days DIAGNOSIS: 1:Laceration of left index finger Patient Understands: Yes - Patient/family/caregi reva verbalizes understanding of instructions given Comment: Normal [facility] ED Patient Summaryon 024 ED Patient Summary [facility] Emergency Department [address] [place] [id number] PATIENT DISCHARGE INSTRUCTIONS Patient Information Name: DEBBIE NARAYANAN SUMMER Age: 28 Years Date of : 1995 Reason For Visit: Finger laceration; FINGER CUT LT HAND INDEX FINGER Arrival Time: 05/10/2024 15:18:57 Primary Care Physician: Provider, None Attending Physician: Gigi Adkins MD Comment: Visit Diagnosis: Diagnoses This Visit Finger laceration ([id number]) Laceration of left index finger (S61.211A) The Pharmacy at [facility] is open Monday through Monday from 9A to 6P and Monday and Monday from 9A to 5P Prescription Information: If you have been given a prescription for narcotics, seek immediate medical attention if you have any difficulty breathing or any sudden status changes such as confusion and sleepiness. If you or anyone you know is experiencing suicidal thoughts, mental health, alcohol and/or drug addiction problems; contact the [facility] 29/05 Crisis Hotline -Text 6QXQJ gw 285821. If you received any narcotics, sedation, or any other medication that causes drowsiness for the next 24 hours, unless otherwise directed: ? Do not drive a car. ? Do not operate machinery such as power tools, lawn mowers, drills, sewing machines, or stoves ? Avoid alcoholic beverages and drugs for allergies, nerves, or sleep ? Do not make important personal or business decisions or sign any legal documents With: Address: When: Follow up with primary care provider Within 3 to 5 days Medication Information: The exam and treatment you received today in the [facility] Emergency Department were for an urgent problem and are not intended as complete care. It is important for you to follow up with a doctor, nurse practitioner, or physician?s residential assistant for ongoing care. If your symptoms become worse or you do not improve as expected and you are unable to reach your usual health care provider, you should return to the Emergency Department, we are available 24 hours a day. For those patients who have received Radiology results, the interpretation of your X-ray as given to you by our Emergency Department physician is only a preliminary report. The Radiologist will review your films and if there is a change in the diagnosis you will be notified by phone. Please make sure you have provided a working phone number so we can reach you if necessary. In the event that you had a lab culture while you were a patient in the Emergency Department, you will be notified by phone if there is a need to change your antibiotic. Please make sure you have provided a working phone number so we can reach you if necessary. [facility] Emergency Department has provided you with a complete list of medications post discharge. Please inform your hot die press operator/provider of your visit and for further instruction on these medications. Any specific questions regarding your chronic medications and dosages should be discussed with your primary care physician(s) and/or pharmacist. Visit Information Allergies: Substance Reaction Symptoms Type Comments No known allergies Drug Vital Signs: Vitals and Measurements this Visit (last charted value for your 05/10/2024 visit) Vital Signs This Visit Temperature Oral: 36.9 DegC Heart Rate Monitored: 70 bpm Respiratory Rate: 16 br/min Systolic Blood Pressure: 124 mmHg Diastolic Blood Pressure: 81 mmHg SpO2: 99 % Oxygen Therapy: Room air Measurements This Visit Height/Length Measured: 168 cm Weight Measured: 68.95 kg Weight Dosin.950 kg Body Mass Index: 24.43 kg/m2 Problems List: Problem Onset Comments No Problems found Patient Education Sutures, Geoff, or Adhesive Wound Closure Wound closure refers to holding skin and underlying tissue together while it heals, such as after surgery or after an injury. Health care providers use stitches (sutures), geoff, skin glue (tissue adhesive), and adhesive strips to close wounds. Your health care provider will use a wound closure method that helps you heal quickly and reduces the chances of infection or scarring. The type of wound closure depends on the location, size, and depth of your wound. More than one type of wound closure may be used on the same wound. In most cases, wounds are closed as soon as possible (primary skin closure). Sometimes, closure is delayed so the wound can be cleaned and then can heal naturally over weeks or months (delayed wound closure). This reduces the chance of infection. What are the different types of wound closure? Skin glue To use skin glue, your health care provider will hold the edges of the wound together and will paint the glue on the surface of your skin. You may need more than one layer of glue. Once the glue is dry, the wound may be covered with a bandage (dressing). This type (more content not included)... 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 Patient states it was bleeding badly, now the bleeding has stopped. Laceration is located on the left anterior finger. Does not want a tetanus shot. [Electronically Signed on: 05/10/2024 16:57 EDT] Mragarita Carson RN [Verified on: 05/10/2024 16:57 EDT] Margarita Carson RN [facility] PAP ACOG PANEL 2: 21 to 29on 05-26-2022 . . Normal [facility] Comment on above: Performed By: #### L DH, PREGQNT, URIC, BUN, ALT, AST, CREA, TSH #### [facility] [address] [place] [address] Dago Barragan Age Gdln ACOG Testing - [facility] Comment on above: Performed By: #### L DH, PREGQNT, URIC, BUN, ALT, AST, CREA, TSH #### [facility] [address] [place] [address] Dago Barragan DIAGNOSIS: Comment [facility] Comment on above: Result Comment: NEGA TIVE FOR INTRAEPITHELIAL LESION OR MALIGNANCY. Performed By: #### L DH, PREGQNT, URIC, BUN, ALT, AST, CREA, TSH #### [facility] [address] [place] [address] Dago Barragan Methodology: Comment [facility] Comment on above: Result Comment: This liquid based ThinPrep(R) pap test was screened with the use of an image guided system. Performed By: #### L DH, PREGQNT, URIC, BUN, ALT, AST, CREA, TSH #### [facility] [address] [place] [address] Dago Barragan Note: Comment [facility] Comment on above: Result Comment: [...] URIC, BUN, ALT, AST, CREA, TSH #### [facility] [address] [place] [address] Dago Barragan Performed by: Comment Normal [facility] Comment on above: Result Comment: Joaquin Lawrence, Lead Solutions Architect (ASCP) Performed By: #### L DH, PREGQNT, URIC, BUN, ALT, AST, CREA, TSH #### [facility] [address] [place] [address] Dagocolleen Barragan Reflex Criteria: Comment Normal [facility] Comment on above: Result Comment: The HPV DNA reflex criteria were not met with this specimen result therefore, no HPV testing was performed. . Performed By: #### L DH, PREGQNT, URIC, BUN, ALT, AST, CREA, TSH #### [facility] [address] [place] [address] Dagocolleen Barragan Specimen adequacy: Comment Normal [facility] Comment on above: Result Comment: Sati sfactory for evaluation. Endocervical and/or squamous metaplastic cells (endocervical component) are present. Performed By: #### L DH, PREGQNT, URIC, BUN, ALT, AST, CREA, TSH #### [facility] [address] [place] [address] Dagocolleen Barragan CBC AUTO DIFFon 10-06-2021 BASO # 0.0 103/ul Normal 0.0-0.1 [facility] Comment on above: Performed By: #### L DH, PREGQNT, URIC, BUN, ALT, AST, CREA, TSH #### [facility] [address] [place] [address] Dago Laurel Basophils/100 WBC (Bld) 0.2 % Normal 0.2-2.0 [facility] Comment on above: Performed By: #### L DH, PREGQNT, URIC, BUN, ALT, AST, CREA, TSH #### [facility] [address] [place] [address] Dago Barragan EO # 0.1 103/ul Normal 0.0-0.7 [facility] Comment on above: Performed By: #### L DH, PREGQNT, URIC, BUN, ALT, AST, CREA, TSH #### [facility] [address] [place] [address] Dago Barragan Eosinophils/100 WBC (Bld) 0.7 % Critically low 0.9-7.0 [facility] Comment on above: Performed By: #### L DH, PREGQNT, URIC, BUN, ALT, AST, CREA, TSH #### [facility] [address] [place] [address] Dago Barragan Erythrocyte distribution width (RBC) [Ratio] 13.0 % Normal 11.0-15.0 [facility] Comment on above: Performed By: #### L DH, PREGQNT, URIC, BUN, ALT, AST, CREA, TSH #### [facility] [address] [place] [address] Dago Barrgaan Hematocrit (Bld) [Volume fraction] 24.1 % Critically low 36.0-48.0 [facility] Comment on above: Performed By: #### L DH, PREGQNT, URIC, BUN, ALT, AST, CREA, TSH #### [facility] [address] [place] [address] Dago Barragan Hemoglobin (Bld) [Mass/Vol] 7.9 g/dL Critically low 12.0-16.0 [facility] Comment on above: Performed By: #### L DH, PREGQNT, URIC, BUN, ALT, AST, CREA, TSH #### [facility] [address] [place] [address] Dago Laurel IG # 0.05 10e3/ul Critically high 0.00-0.03 [facility] Comment on above: Performed By: #### L DH, PREGQNT, URIC, BUN, ALT, AST, CREA, TSH #### [facility] [address] [place] [address] Daogcolleen Adamsen IG % 0.6 % Critically high 0.0-0.5 [facility] Comment on above: Performed By: #### L DH, PREGQNT, URIC, BUN, ALT, AST, CREA, TSH #### [facility] [address] [place] [address] Dago Barragan LYMPH # 1.2 103/ul Normal 1.2-3.8 [facility] Comment on above: Performed By: #### L DH, PREGQNT, URIC, BUN, ALT, AST, CREA, TSH #### [facility] [address] [place] [address] Dago Barragan Lymphocytes/100 WBC (Bld) 14.9 % Critically low 20.5-60.0 [facility] Comment on above: Performed By: #### L DH, PREGQNT, URIC, BUN, ALT, AST, CREA, TSH #### [facility] [address] [place] [address] Dago Barragan MANUAL DIFF REQ NO Normal [facility] Comment on above: Performed By: #### L DH, PREGQNT, URIC, BUN, ALT, AST, CREA, TSH #### [facility] [address] [place] [address] Dago Barragan MCH (RBC) [Entitic mass] 29.8 pg Normal 26.7-34.0 [facility] Comment on above: Performed By: #### L DH, PREGQNT, URIC, BUN, ALT, AST, CREA, TSH #### [facility] [address] [place] [address] Dago Barragan MCHC (RBC) [Mass/Vol] 32.8 g/dL Normal 29.9-35.2 [facility] Comment on above: Performed By: #### L DH, PREGQNT, URIC, BUN, ALT, AST, CREA, TSH #### [facility] [address] [place] [address] Dago Barragan MCV (RBC) [Entitic vol] 90.9 fL Normal 81.0-99.0 [facility] Comment on above: Performed By: #### L DH, PREGQNT, URIC, BUN, ALT, AST, CREA, TSH #### [facility] [address] [place] [address] Dago Laurel MONO # 0.7 103/ul Normal 0.3-0.8 [facility] Comment on above: Performed By: #### L DH, PREGQNT, URIC, BUN, ALT, AST, CREA, TSH #### [facility] [address] [place] [address] Dago Barragan Monocytes/100 WBC (Bld) 9.0 % Normal 1.7-12.0 [facility] Comment on above: Performed By: #### L DH, PREGQNT, URIC, BUN, ALT, AST, CREA, TSH #### [facility] [address] [place] [address] Dagocolleen Adamsen NEUT # 6.0 103/ul Normal 1.4-6.5 [facility] Comment on above: Performed By: #### L DH, PREGQNT, URIC, BUN, ALT, AST, CREA, TSH #### [facility] [address] [place] [address] Dago Barragan Neutrophils/100 WBC (Bld) 74.6 % Normal 43.0-75.0 [facility] Comment on above: Performed By: #### L DH, PREGQNT, URIC, BUN, ALT, AST, CREA, TSH #### [facility] [address] [place] [address] Dago Barragan Platelet mean volume (Bld) [Entitic vol] 9.2 fL Critically low 9.5-13.5 [facility] Comment on above: Performed By: #### L DH, PREGQNT, URIC, BUN, ALT, AST, CREA, TSH #### [facility] [address] [place] [address] Dagocolleen Adamsen PLT 137 103/ul Critically low 150-450 [facility] Comment on above: Performed By: #### L DH, PREGQNT, URIC, BUN, ALT, AST, CREA, TSH #### [facility] [address] [place] [address] Dago Laurel RBC 2.65 106/ul Critically low 4.20-5.40 [facility] Comment on above: Performed By: #### L DH, PREGQNT, URIC, BUN, ALT, AST, CREA, TSH #### [facility] [address] [place] [address] Dago Laurel WBC 8.0 103/ul Normal 4.0-11.0 [facility] Comment on above: Performed By: #### L DH, PREGQNT, URIC, BUN, ALT, AST, CREA, TSH #### [facility] [address] [place] [address] Dagocolleen Barragan CBC AUTO DIFFon 10-05-2021 BASO # 0.0 103/ul Normal 0.0-0.1 [facility] Comment on above: Performed By: #### C REA24U, [id number] #### [facility] [address] [place] [address] Dago Barragan Basophils/100 WBC (Bld) 0.3 % Normal 0.2-2.0 [facility] Comment on above: Performed By: #### C REA24U, [id number] #### [facility] [address] [place] [address] Dagocolleen Barragan EO # 0.1 103/ul Normal 0.0-0.7 [facility] Comment on above: Performed By: #### C REA24U, [id number] #### [facility] [address] [place] [address] Dago Barragan Eosinophils/100 WBC (Bld) 1.0 % Normal 0.9-7.0 [facility] Comment on above: Performed By: #### C REA24U, [id number] #### [facility] [address] [place] [address] Dago Barragan Erythrocyte distribution width (RBC) [Ratio] 12.8 % Normal 11.0-15.0 [facility] Comment on above: Performed By: #### C REA24U, [id number] #### [facility] [address] [place] [address] Dago Barragan Hematocrit (Bld) [Volume fraction] 33.3 % Critically low 36.0-48.0 [facility] Comment on above: Performed By: #### C REA24U, [id number] #### [facility] [address] [place] [address] Dago Laurel Hemoglobin (Bld) [Mass/Vol] 11.1 g/dL Critically low 12.0-16.0 [facility] Comment on above: Performed By: #### C REA24U, [id number] #### [facility] [address] [place] [address] Dago Laurel IG # 0.05 10e3/ul Critically high 0.00-0.03 [facility] Comment on above: Performed By: #### C REA24U, [id number] #### [facility] [address] [place] [address] Dago Laurel IG % 0.6 % Critically high 0.0-0.5 [facility] Comment on above: Performed By: #### C REA24U, [id number] #### [facility] [address] [place] [address] Dago Laurel LYMPH # 1.3 103/ul Normal 1.2-3.8 [facility] Comment on above: Performed By: #### C REA24U, [id number] #### [facility] [address] [place] [address] Dagocolleen Adamsen Lymphocytes/100 WBC (Bld) 16.2 % Critically low 20.5-60.0 [facility] Comment on above: Performed By: #### C REA24U, [id number] #### [facility] [address] [place] [address] Dago Adamsen MANUAL DIFF REQ NO Normal [facility] Comment on above: Performed By: #### C REA24U, [id number] #### [facility] [address] [place] [address] Dago Laurel MCH (RBC) [Entitic mass] 29.4 pg Normal 26.7-34.0 [facility] Comment on above: Performed By: #### C REA24U, [id number] #### [facility] [address] [place] [address] Dagocolleen Barragan MCHC (RBC) [Mass/Vol] 33.3 g/dL Normal 29.9-35.2 [facility] Comment on above: Performed By: #### C [id number], [id number] #### [facility] [address] [place] [address] Dagocolleen Barragan MCV (RBC) [Entitic vol] 88.3 fL Normal 81.0-99.0 [facility] Comment on above: Performed By: #### C THIERNO4U, [id number] #### [facility] [address] [place] [address] Dago Laurel MONO # 0.5 103/ul Normal 0.3-0.8 [facility] Comment on above: Performed By: #### C THIERNO4U, [id number] #### [facility] [address] [place] [address] Dago Laurel Monocytes/100 WBC (Bld) 6.5 % Normal 1.7-12.0 [facility] Comment on above: Performed By: #### C [id number], [id number] #### [facility] [address] [place] [address] Dago Laurel NEUT # 5.8 103/ul Normal 1.4-6.5 [facility] Comment on above: Performed By: #### C REA24U, [id number] #### [facility] [address] [place] [address] Dago Laurel Neutrophils/100 WBC (Bld) 75.4 % Critically high 43.0-75.0 [facility] Comment on above: Performed By: #### C REA24U, [id number] #### [facility] [address] [place] [address] Dago Laurel Platelet mean volume (Bld) [Entitic vol] 9.5 fL Normal 9.5-13.5 [facility] Comment on above: Performed By: #### C REA24U, [id number] #### [facility] [address] [place] [address] Dago Laurel PLT 173 103/ul Normal 150-450 [facility] Comment on above: Performed By: #### C REA24U, [id number] #### [facility] [address] [place] [address] Dago Laurel RBC 3.77 106/ul Critically low 4.20-5.40 [facility] Comment on above: Performed By: #### C REA24U, [id number] #### [facility] [address] [place] [address] Dago Laurel WBC 7.7 103/ul Normal 4.0-11.0 [facility] Comment on above: Performed By: #### C REA24U, [id number] #### [facility] [address] [place] [address] Dago Laurel DRUG SCREEN RAPID (URINE)on 10-05-2021 AMP Negative Normal NEGATIVE [facility] Comment on above: Performed By: #### C REA24U, [id number] #### [facility] [address] [place] [address] Dago Laurel BAR Negative Normal NEGATIVE [facility] Comment on above: Performed By: #### C REA24U, [id number] #### [facility] [address] [place] [address] Dago Laurel BUP Negative Normal NEGATIVE [facility] Comment on above: Performed By: #### C REA24U, [id number] #### [facility] [address] [place] [address] Dago Laurel BZO Negative Normal NEGATIVE [facility] Comment on above: Performed By: #### C REA24U, [id number] #### [facility] [address] [place] [address] Dago Laurel MAME Negative Normal NEGATIVE [facility] Comment on above: Performed By: #### C REA24U, [id number] #### [facility] [address] [place] [address] Dago Laurel CUT-OFFS SEE BELOW Normal [facility] Comment on above: Result Comment: AMP (Amphetamine): 500ng/mL, BAR (Barbituates): 200 ng/mL, BZO (Benzodiazepines): 150 ng/mL, BUP (Buprenorphine): 10 ng/mL, MAME (Cocaine): 150 ng/mL, mAMP (Methamphetamine): 500 ng/mL, MTD (Methadone): 200 ng/mL, OPI (Opiates): 100 ng/mL, OXY (Oxycodone): 100 ng/mL, PCP (Phencyclidine): 25 ng/mL, PPX (Propoxyphene): 300 ng/mL, THC (Cannabinoids): 50 ng/mL, TCA (Trycyclic Antidepressants): 300 ng/mL Performed By: #### C REA24U, [id number] #### [facility] [address] [place] [address] DRUG CUT HEADER DRUG CLASS TEST SYSTEM CUT-OFF CONCENTRATIONS ARE FOLLOWS: Normal [facility] Comment on above: Performed By: #### C REA24U, [id number] #### [facility] [address] [place] [address] Dago Laurel mAMP Negative Normal NEGATIVE [facility] Comment on above: Performed By: #### C REA24U, [id number] #### [facility] [address] [place] [address] Dago Laurel MTD Negative Normal NEGATIVE [facility] Comment on above: Performed By: #### C REA24U, [id number] #### [facility] [address] [place] [address] Dago Laurel OPI Negative Normal NEGATIVE [facility] Comment on above: Performed By: #### C REA24U, [id number] #### [facility] [address] [place] [address] Dago Laurel OXY Negative Normal NEGATIVE [facility] Comment on above: Performed By: #### C REA24U, [id number] #### [facility] [address] [place], [place] [address] PCP Negative Normal NEGATIVE [facility] Comment on above: Performed By: #### C REA24U, [id number] #### [facility] [address] [place] [address] Dago Laurel PPX Negative Normal NEGATIVE [facility] Comment on above: Performed By: #### C REA24U, [id number] #### [facility] [address] [place], [place] [id number] Dago Laurel TCA Negative Normal NEGATIVE [facility] Comment on above: Performed By: #### C REA24U, [id number] #### [facility] [address] [place] [address] Dago Laurel THC Negative Normal NEGATIVE [facility] Comment on above: Performed By: #### C [id number], [id number] #### [facility] [address] [place] [address] Dago Laurel TYPE AND SCREENon 10-05-2021 TYPE AND SCREEN Negative Normal [facility] Comment on above: Performed By: #### C REA24U, [id number] #### [facility] [address] [place] [address] Dago Laurel UA (CLEAN/CATCH) PIPE ORGAN TUNER AND REPAIRER/MICRO I F IND.on 10-05-2021 Bilirubin Ql (U) Negative Normal NEGATIVE [facility] Comment on above: Performed By: #### C REA24U, [id number] #### [facility] [address] [place] [address] Dago Laurel Clarity (U) CLEAR Normal CLEAR [facility] Comment on above: Performed By: #### C REA24U, [id number] #### [facility] [address] [place], [place] [id number] Dago Laurel Color (U) LT. YELLOW Normal YELLOW [facility] Comment on above: Performed By: #### C REA24U, [id number] #### [facility] [address] [place] [address] Dago Laurel Glucose Ql (U) Negative Normal NEGATIVE [facility] Comment on above: Performed By: #### C REA24U, [id number] #### [facility] [address] [place] [address] Dago Laurel Hemoglobin Ql (U) Negative Normal NEGATIVE [facility] Comment on above: Performed By: #### C REA24U, [id number] #### [facility] [address] [place] [address] Dago Laurel Ketones Ql (U) Negative Normal NEGATIVE [facility] Comment on above: Performed By: #### C REA24U, [id number] #### [facility] [address] [place] [address] Dago Laurel LEUKOCYTES Negative Normal NEGATIVE [facility] Comment on above: Performed By: #### C REA24U, [id number] #### [facility] [address] [place] [address] Dago Laurel Nitrite Ql (U) Negative Normal NEGATIVE [facility] Comment on above: Performed By: #### C REA24U, [id number] #### [facility] [address] [place] [address] Dago Barragan pH (U) 6.0 [pH] Normal 5-9 [facility] Comment on above: Performed By: #### C REA24U, [id number] #### [facility] [address] [place] [address] Dago Barragan SPEC GRAVITY 1.010 Normal 1.005-<=1.025 [facility] Comment on above: Performed By: #### C REA24U, [id number] #### [facility] [address] [place] [address] Dago Barragan UA PROTEIN Negative Normal NEGATIVE/ TRACE [facility] Comment on above: Performed By: #### C REA24U, [id number] #### [facility] [address] [place] [address] Dago Barragan UR MICRO IND NOT INDICATED Normal [facility] Comment on above: Performed By: #### C REA24U, [id number] #### [facility] [address] [place] [address] Dago Barragan Urobilinogen Qn (U) 0.2 {Becca'U}/dL Normal 0.2 - 1. 0 [facility] Comment on above: Performed By: #### C REA24U, [id number] #### [facility] [address] [place] [address] Dago Barragan Covid-19 PCR (CVDTBH)on 09-07 SARS-CoV-2 (COVID-19) RNA LORA+probe Ql (Unsp spec) Not detected Normal NOT DETECTED [facility] Comment on above: Result Comment: This test is not yet approved or cleared by the [place] FDA. When there are no FDA-approved or cleared tests available, and other criteria are met, FDA can make tests available under an emergency access mechanism called an Emergency Use Authorization (EUA). The EUA for this test is supported by the [place] Inspector of Health and Human Service's (HHS's) declaration [...] with SARS-CoV-2. Performed By: #### C REA24U, [id number] #### [facility] [address] [place] [address] Dago Barragan Covid-19 PCR (CVDTBH)on 09-07 SARS-CoV-2 (COVID-19) RNA LORA+probe Ql (Unsp spec) Not detected Normal NOT DETECTED [facility] Comment on above: Result Comment: This test is not yet approved or cleared by the [place] FDA. When there are no FDA-approved or cleared tests available, and other criteria are met, FDA can make tests available under an emergency access mechanism called an Emergency Use Authorization (EUA). The EUA for this test is supported by the [place] of Health and Human Service's (HHS's) declaration [...] URIC, BUN, ALT, AST, CREA, TSH #### [facility] [address] [address] Dago [place] PREG GROWTHon 09-29-2021 US PREG GROWTH EXAMINATION: US PREG GROWTH HISTORY: [...] 3rd percentile. 3. Questionable thickening of the infant gallbladder wall; nonspecific. Consider follow-up. Electronically authenticated by: BANG KELLOGG Date: 2021-09-29 16:28 Normal [facility] CHLAMYDIA/GONOCOCCUS LORA (SW AB/URINE/PAPon 09-16-2021 Chlamydia trachomatis, LORA Negative Normal Negative [facility] Comment on above: Performed By: #### C REA24U, [id number] #### [facility] [address] [address] Dago Barragan Neisseria gonorrhoeae, LORA Negative Normal Negative [facility] Comment on above: Performed By: #### C REA24U, [id number] #### [facility] [address] [place] [address] Dago Barragan GROUP B STREP CULTUREon S. agalactiae Ag Ql (Unsp spec) Culture Observations: NEGATIVE FOR GROUP B STREPTOCOCCUS. Normal [facility] Comment on above: Performed By: #### C REA24U, [id number] #### [facility] [address] [place] [address] Dago Barragan CBC AUTO DIFFon 09-10-2021 BASO # 0.0 103/ul Normal 0.0-0.1 [facility] Comment on above: Performed By: #### C REA24U, [id number] #### [facility] [address] [place] [address] Dago Adamsen Basophils/100 WBC (Bld) 0.3 % Normal 0.2-2.0 [facility] Comment on above: Performed By: #### C REA24U, [id number] #### [facility] [address] [place] [address] Dago Barragan EO # 0.1 103/ul Normal 0.0-0.7 [facility] Comment on above: Performed By: #### C REA24U, [id number] #### [facility] [address] [place] [address] Dago Barragan Eosinophils/100 WBC (Bld) 0.7 % Critically low 0.9-7.0 [facility] Comment on above: Performed By: #### C REA24U, [id number] #### [facility] [address] [place] [address] Dago Barragan Erythrocyte distribution width (RBC) [Ratio] 12.7 % Normal 11.0-15.0 [facility] Comment on above: Performed By: #### C REA24U, [id number] #### [facility] [address] [place] [address] Dago Barragan Hematocrit (Bld) [Volume fraction] 32.6 % Critically low 36.0-48.0 [facility] Comment on above: Performed By: #### C REA24U, [id number] #### [facility] [address] [place], [place] [id number] Dago [place] Hemoglobin (Bld) [Mass/Vol] 10.8 g/dL Critically low 12.0-16.0 [facility] Comment on above: Performed By: #### C REA24U, [id number] #### [facility] [address] [place] [address] Dago Laurel IG # 0.07 10e3/ul Critically high 0.00-0.03 [facility] Comment on above: Performed By: #### C REA24U, [id number] #### [facility] [address] [place] [address] Dago La[place] IG % 0.9 % Critically high 0.0-0.5 [facility] Comment on above: Performed By: #### C REA24U, [id number] #### [facility] [address] [place] [address] Dago Laurel LYMPH # 0.9 103/ul Critically low 1.2-3.8 [facility] Comment on above: Performed By: #### C REA24U, [id number] #### [facility] [address] [place] [address] Dago Barragan Lymphocytes/100 WBC (Bld) 12.2 % Critically low 20.5-60.0 [facility] Comment on above: Performed By: #### C REA24U, [id number] #### [facility] [address] [place] [address] Dago Barragan MANUAL DIFF REQ NO Normal [facility] Comment on above: Performed By: #### C REA24U, [id number] #### [facility] [address] [place] [address] Dago Laurel MCH (RBC) [Entitic mass] 30.0 pg Normal 26.7-34.0 [facility] Comment on above: Performed By: #### C REA24U, [id number] #### [facility] [address] [place] [address] Dagocloleen Barragan MCHC (RBC) [Mass/Vol] 33.1 g/dL Normal 29.9-35.2 [facility] Comment on above: Performed By: #### C EITAN [id number] #### [facility] [address] [place] [address] Dago Barragan MCV (RBC) [Entitic vol] 90.6 fL Normal 81.0-99.0 [facility] Comment on above: Performed By: #### C EITAN [id number] #### [facility] [address] [place] [address] Dagocolleen Barragan MONO # 0.4 103/ul Normal 0.3-0.8 [facility] Comment on above: Performed By: #### Janneth LAIRD [id number] #### [facility] [address] [place] [address] Dago Barragan Monocytes/100 WBC (Bld) 5.2 % Normal 1.7-12.0 [facility] Comment on above: Performed By: #### Janneth LAIRD [id number] #### [facility] [address] [place] [address] Dago Barragan NEUT # 6.0 103/ul Normal 1.4-6.5 [facility] Comment on above: Performed By: #### Janneth LAIRD [id number] #### [facility] [address] [place] [address] Dago Barragan Neutrophils/100 WBC (Bld) 80.7 % Critically high 43.0-75.0 [facility] Comment on above: Performed By: #### Janneth LAIRD [id number] #### [facility] [address] [place] [address] Dagocolleen Barragan Platelet mean volume (Bld) [Entitic vol] 9.0 fL Critically low 9.5-13.5 [facility] Comment on above: Performed By: #### Janneth PA4Aby [id number] #### [facility] [address] [place] [address] Dago La[place] PLT 153 103/ul Normal 150-450 [facility] Comment on above: Performed By: #### C THIERNO4Aby [id number] #### [facility] [address] [place] [address] Dago Barragan RBC 3.60 106/ul Critically low 4.20-5.40 [facility] Comment on above: Performed By: #### C REA24U, [id number] #### [facility] [address] [place] [address] Dago Barragan WBC 7.4 103/ul Normal 4.0-11.0 [facility] Comment on above: Performed By: #### C REA24U, [id number] #### [facility] [address] [place] [address] Dago Barragan GLUCOSE - 1HRon 09-10-2021 Glucose [Mass/Vol] 113 mg/dL Critically high 74-106 T [facility] Comment on above: Performed By: #### C REA24U, [id number] #### [facility] [address] [place] [address] Dago Barragan CULTURE URINEon 09-03-2021 CULTURE URINE Culture Observations : HEAVY GROWTH OF MIXED GENITAL TOD. NO POTENTIAL PATHOGENS SEEN. Normal [facility] Comment on above: Performed By: #### C REA24U, [id number] #### [facility] [address] [place] [address] Dago Barragan UA (CLEAN/CATCH) PIPE ORGAN TUNER AND REPAIRER/MICRO I F IND.on 09-03-2021 Bilirubin Ql (U) Negative Normal NEGATIVE [facility] Comment on above: Performed By: #### L DH, PREGQNT, URIC, BUN, ALT, AST, CREA, TSH #### [facility] [address] [place] [address] Dago Barragan Clarity (U) SL CLOUDY Abnormal CLEAR [facility] Comment on above: Performed By: #### L DH, PREGQNT, URIC, BUN, ALT, AST, CREA, TSH #### [facility] [address] [place] [address] Dago Barragan Color (U) YELLOW Normal YELLOW [facility] Comment on above: Performed By: #### L DH, PREGQNT, URIC, BUN, ALT, AST, CREA, TSH #### [facility] [address] [address] [place] Glucose Ql (U) Negative Normal NEGATIVE [facility] Comment on above: Performed By: #### L DH, PREGQNT, URIC, BUN, ALT, AST, CREA, TSH #### [facility] [address] [place] [address] D[place] Hemoglobin Ql (U) LARGE Abnormal NEGATIVE [facility] Comment on above: Performed By: #### L DH, PREGQNT, URIC, BUN, ALT, AST, CREA, TSH #### [facility] [address] [place] [address] [place] Ketones Ql (U) Negative Normal NEGATIVE [facility] Comment on above: Performed By: #### L DH, PREGQNT, URIC, BUN, ALT, AST, CREA, TSH #### [facility] [address] [place] [address] [place] LEUKOCYTES SMALL Abnormal NEGATIVE [facility] Comment on above: Performed By: #### L DH, PREGQNT, URIC, BUN, ALT, AST, CREA, TSH #### [facility] [address] [place] [address] D[place] Nitrite Ql (U) Negative Normal NEGATIVE [facility] Comment on above: Performed By: #### L DH, PREGQNT, URIC, BUN, ALT, AST, CREA, TSH #### [facility] [address] [place] [address] D[place] pH (U) 5.5 [pH] Normal 5-9 [facility] Comment on above: Performed By: #### L DH, PREGQNT, URIC, BUN, ALT, AST, CREA, TSH #### [facility] [address] [place] [address] Dagocolleen Adamsen SPEC GRAVITY >=1.030 Abnormal 1.005-<=1.025 [facility] Comment on above: Performed By: #### L DH, PREGQNT, URIC, BUN, ALT, AST, CREA, TSH #### [facility] [address] [place] [address] Dago Barragan UA PROTEIN 30 mg/dl Abnormal NEGATIVE/ TRACE [facility] Comment on above: Performed By: #### L DH, PREGQNT, URIC, BUN, ALT, AST, CREA, TSH #### [facility] [address] [place] [address] Dago Barragan UR MICRO IND INDICATED Normal [facility] Comment on above: Performed By: #### L DH, PREGQNT, URIC, BUN, ALT, AST, CREA, TSH #### [facility] [address] [place] [address] Dago Barragan Urobilinogen Qn (U) 0.2 {Becca'U}/dL Normal 0.2 - 1. 0 [facility] Comment on above: Performed By: #### L DH, PREGQNT, URIC, BUN, ALT, AST, CREA, TSH #### [facility] [address] [place] [address] Dago Barragan URINE MICROSCOPIC ONLYon BACTERIA TRACE Abnormal NONE SEEN [facility] Comment on above: Performed By: #### L DH, PREGQNT, URIC, BUN, ALT, AST, CREA, TSH #### [facility] [address] [place] [address] Dago Barragan Bacteria identified Cx Nom (U) INDICATED Normal [facility] Comment on above: Performed By: #### L DH, PREGQNT, URIC, BUN, ALT, AST, CREA, TSH #### [facility] [address] [place] [address] Dago Barragan CAST NONE SEEN Normal NONE SEEN [facility] Comment on above: Performed By: #### L DH, PREGQNT, URIC, BUN, ALT, AST, CREA, TSH #### [facility] [address] [place] [address] Dago Barragan Crystals LM Nom (Urine sed) NONE SEEN Normal NONE SEEN [facility] Comment on above: Performed By: #### L DH, PREGQNT, URIC, BUN, ALT, AST, CREA, TSH #### [facility] [address] [place] [address] Dago Barragan Epithelial cells LM Ql (Urine sed) FEW Abnormal NONE SEEN /RARE [facility] Comment on above: Performed By: #### L DH, PREGQNT, URIC, BUN, ALT, AST, CREA, TSH #### [facility] [address] [place] [address] Dagocolleen Barragan MUCOUS NONE SEEN Normal NONE SEEN [facility] Comment on above: Performed By: #### L DH, PREGQNT, URIC, BUN, ALT, AST, CREA, TSH #### [facility] [address] [place] [address] Dago Laurel RBC 50-75 Abnormal 0-2 [facility] Comment on above: Performed By: #### L DH, PREGQNT, URIC, BUN, ALT, AST, CREA, TSH #### [facility] [address] [place] [address] Dagocolleen Barragan WBC 2-5 Abnormal NONE SEEN [facility] Comment on above: Performed By: #### L DH, PREGQNT, URIC, BUN, ALT, AST, CREA, TSH #### [facility] [address] [place], [place] [id number] Dago Barragan CULTURE URINEon 08-20-2021 CULTURE URINE Culture Observations : MODERATE GROWTH OF MIXED GENITAL TOD. NO POTENTIAL PATHOGENS SEEN. Normal [facility] Comment on above: Performed By: #### C REA24U, [id number] #### [facility] [address] [place], [place] [id number] Dago Laurel UA (CLEAN/CATCH) PIPE ORGAN TUNER AND REPAIRER/MICRO I F IND.on 08-20-2021 Bilirubin Ql (U) Negative Normal NEGATIVE [facility] Comment on above: Performed By: #### L DH, PREGQNT, URIC, BUN, ALT, AST, CREA, TSH #### [facility] [address] [place] [address] Dagocolleen Barragan Clarity (U) CLEAR Normal CLEAR [facility] Comment on above: Performed By: #### L DH, PREGQNT, URIC, BUN, ALT, AST, CREA, TSH #### [facility] [address] [address] [place] Color (U) LT. YELLOW Normal YELLOW [facility] Comment on above: Performed By: #### L DH, PREGQNT, URIC, BUN, ALT, AST, CREA, TSH #### [facility] [address] [address] Dago [place] Glucose Ql (U) Negative Normal NEGATIVE [facility] Comment on above: Performed By: #### L DH, PREGQNT, URIC, BUN, ALT, AST, CREA, TSH #### [facility] [address] [address] D[place] Hemoglobin Ql (U) Negative Normal NEGATIVE [facility] Comment on above: Performed By: #### L DH, PREGQNT, URIC, BUN, ALT, AST, CREA, TSH #### [facility] [address] [place] [address] Dago Laurel Ketones Ql (U) Negative Normal NEGATIVE [facility] Comment on above: Performed By: #### L DH, PREGQNT, URIC, BUN, ALT, AST, CREA, TSH #### [facility] [address] [address] [place] LEUKOCYTES MODERATE Abnormal NEGATIVE [facility] Comment on above: Performed By: #### L DH, PREGQNT, URIC, BUN, ALT, AST, CREA, TSH #### [facility] [address] [place] [address] Dago Laurel Nitrite Ql (U) Negative Normal NEGATIVE [facility] Comment on above: Performed By: #### L DH, PREGQNT, URIC, BUN, ALT, AST, CREA, TSH #### [facility] [address] [place] [address] Dago Laurel pH (U) 7.0 [pH] Normal 5-9 [facility] Comment on above: Performed By: #### L DH, PREGQNT, URIC, BUN, ALT, AST, CREA, TSH #### [facility] [address] [place] [address] Dago Laurel SPEC GRAVITY 1.020 Normal 1.005-<=1.025 [facility] Comment on above: Performed By: #### L DH, PREGQNT, URIC, BUN, ALT, AST, CREA, TSH #### [facility] [address] [place] [address] Dago Laurel UA PROTEIN Negative Normal NEGATIVE/ TRACE [facility] Comment on above: Performed By: #### L DH, PREGQNT, URIC, BUN, ALT, AST, CREA, TSH #### [facility] [address] [place] [address] Dago Laurel UR MICRO IND INDICATED Normal [facility] Comment on above: Performed By: #### L DH, PREGQNT, URIC, BUN, ALT, AST, CREA, TSH #### [facility] [address] [place] [address] Dago Barragan Urobilinogen Qn (U) 0.2 {Becca'U}/dL Normal 0.2 - 1. 0 [facility] Comment on above: Performed By: #### L DH, PREGQNT, URIC, BUN, ALT, AST, CREA, TSH #### [facility] [address] [place] [address] Dagocolleen Barragan URINE MICROSCOPIC ONLYon BACTERIA MODERATE Abnormal NONE SEEN [facility] Comment on above: Performed By: #### L DH, PREGQNT, URIC, BUN, ALT, AST, CREA, TSH #### [facility] [address] [place] [address] Dago Laurel Bacteria identified Cx Nom (U) INDICATED Normal [facility] Comment on above: Performed By: #### L DH, PREGQNT, URIC, BUN, ALT, AST, CREA, TSH #### [facility] [address] [place] [address] Dago Laurel CAST NONE SEEN Normal NONE SEEN [facility] Comment on above: Performed By: #### L DH, PREGQNT, URIC, BUN, ALT, AST, CREA, TSH #### [facility] [address] [place] [address] Dagocolleen Barragan Crystals LM Nom (Urine sed) NONE SEEN Normal NONE SEEN [facility] Comment on above: Performed By: #### L DH, PREGQNT, URIC, BUN, ALT, AST, CREA, TSH #### [facility] [address] [place] [address] Dagocolleen Barragan Epithelial cells LM Ql (Urine sed) MODERATE Abnormal NONE SEEN /RARE [facility] Comment on above: Performed By: #### L DH, PREGQNT, URIC, BUN, ALT, AST, CREA, TSH #### [facility] [address] [place] [address] Dago Laurel MUCOUS SMALL Abnormal NONE SEEN [facility] Comment on above: Performed By: #### L DH, PREGQNT, URIC, BUN, ALT, AST, CREA, TSH #### [facility] [address] [place] [address] Dagocolleen Adamsen RBC 0-2 Normal 0-2 [facility] Comment on above: Performed By: #### L DH, PREGQNT, URIC, BUN, ALT, AST, CREA, TSH #### [facility] [address] [place] [address] Dago Laurel WBC 5-10 Abnormal NONE SEEN [facility] Comment on above: Performed By: #### L DH, PREGQNT, URIC, BUN, ALT, AST, CREA, TSH #### [facility] [address] [place] [address] Dago Barragan HEMOGLOBINOPATHY FRACTIONATI ON 06-02-2021 HGB A 97.3 % Normal 96.4-98.8 [facility] Comment on above: Performed By: #### C REA24U, [id number] #### [facility] [address] [place] [address] Dagocolleen Adamsen HGB A2 2.7 % Normal 1.8-3.2 [facility] Comment on above: Performed By: #### C REA24U, [id number] #### [facility] [address] [place] [address] Dagocolleen Barragan HGB F 0.0 % Normal 0.0-2.0 [facility] Comment on above: Performed By: #### C REA24U, [id number] #### [facility] [address] [place] [address] Dago Barragan HGB S 0.0 % Normal 0.0 [facility] Comment on above: Performed By: #### C REA24U, [id number] #### [facility] [address] [place] [address] Dago Barragan Interpretation: Comment Normal [facility] Comment on above: Result Comment: Norm al hemoglobin present; no hemoglobin variant or thalassemia observed. Performed By: #### C REA24U, [id number] #### [facility] [address] [place] [address] Dago Barragan HEP B SURFACE ANTIGEN SCREEN on 06-02-2021 HBsAg Screen Negative Normal Negative [facility] Comment on above: Performed By: #### L DH, PREGQNT, URIC, BUN, ALT, AST, CREA, TSH #### [facility] [address] [place] [address] Dago Barragan HEPATITIS C ANTIBODYon 06-02 Hep C Virus Ab 0.1 s/co ratio Normal 0.0-0.9 [facility] Comment on above: Result Comment: Nega tive: < 0.8 Indeterminate: 0.8 - 0.9 Positive: > 0.9 . The CDC recommends that a positive HCV antibody result be followed up with a HCV Nucleic Acid Amplification test (836900). Performed By: #### L DH, PREGQNT, URIC, BUN, ALT, AST, CREA, TSH #### [facility] [address] [place] [address] Dago Barragan HIV 1 AND 2 WITH REFLEXon HIV Screen 4th Generation wRfx Non-Reactive Normal Non Reactive [facility] Comment on above: Performed By: #### H IV12 #### [facility] [address] [place] [address] Dago Barragan RPR QUANTon 06-02-2021 Rapid Plasma Reagin, Quant Non-Reactive Normal NonRea<1:1 [facility] Comment on above: Performed By: #### L DH, PREGQNT, URIC, BUN, ALT, AST, CREA, TSH #### [facility] [address] [place] [address] Dago Barragan RUBELLA AB IGGon 06-02-2021 Rubella Antibodies, IgG 2.27 index Normal Immune >0.99 [facility] Comment on above: Result Comment: Non- immune <0.90 Equivocal 0.90 - 0.99 Immune >0.99 Performed By: #### L DH, PREGQNT, URIC, BUN, ALT, AST, CREA, TSH #### [facility] [address] [place] [address] Dago Barragan VARICELLA IGG ABon Varicella Zoster IgG 1072 index Normal Immune >165 [facility] Comment on above: Result Comment: Nega tive <135 Equivocal 135 - 165 Positive >165 A positive result generally indicates exposure to the pathogen or administration of specific immunoglobulins, but it is not indication of active infection or stage of disease. Performed By: #### C REA24U, [id number] #### [facility] [address] [place] [address] Dago Barragan BUNon 06-01-2021 Urea nitrogen [Mass/Vol] 9.0 mg/dL Normal 7.0-17.0 [facility] Comment on above: Performed By: #### L DH, PREGQNT, URIC, BUN, ALT, AST, CREA, TSH #### [facility] [address] [place] [address] Dago Barragan CBC AUTO DIFFon 06-01-2021 BASO # 0.0 103/ul Normal 0.0-0.1 [facility] Comment on above: Performed By: #### C REA24U, [id number] #### [facility] [address] [place] [address] Dago Barragan Basophils/100 WBC (Bld) 0.3 % Normal 0.2-2.0 [facility] Comment on above: Performed By: #### C REA24U, [id number] #### [facility] [address] [place] [address] Dago Laurel EO # 0.1 103/ul Normal 0.0-0.7 [facility] Comment on above: Performed By: #### C REA24U, [id number] #### [facility] [address] [place] [address] Dago Laurel Eosinophils/100 WBC (Bld) 1.0 % Normal 0.9-7.0 [facility] Comment on above: Performed By: #### C REA24U, [id number] #### [facility] [address] [place] [address] Dago Laurel Erythrocyte distribution width (RBC) [Ratio] 12.6 % Normal 11.0-15.0 [facility] Comment on above: Performed By: #### C REA24U, [id number] #### [facility] [address] [place] [address] Dago Laurel Hematocrit (Bld) [Volume fraction] 34.1 % Critically low 36.0-48.0 [facility] Comment on above: Performed By: #### C REA24U, [id number] #### [facility] [address] [place] [address] Dago Laurel Hemoglobin (Bld) [Mass/Vol] 11.4 g/dL Critically low 12.0-16.0 [facility] Comment on above: Performed By: #### C REA24U, [id number] #### [facility] [address] [place] [address] Dago Laurel IG # 0.02 10e3/ul Normal 0.00-0.03 [facility] Comment on above: Performed By: #### C REA24U, [id number] #### [facility] [address] [place] [address] Dago Laurel IG % 0.3 % Normal 0.0-0.5 [facility] Comment on above: Performed By: #### C REA24U, [id number] #### [facility] [address] [place] [address] Dago Laurel LYMPH # 0.9 103/ul Critically low 1.2-3.8 [facility] Comment on above: Performed By: #### C REA24U, [id number] #### [facility] [address] [place] [address] Dago Barragan Lymphocytes/100 WBC (Bld) 16.0 % Critically low 20.5-60.0 [facility] Comment on above: Performed By: #### C REA24U, [id number] #### [facility] [address] [place] [address] Dagocolleen Barragan MANUAL DIFF REQ NO Normal [facility] Comment on above: Performed By: #### C REA24U, [id number] #### [facility] [address] [place] [address] Dagocolleen Barragan MCH (RBC) [Entitic mass] 30.6 pg Normal 26.7-34.0 [facility] Comment on above: Performed By: #### C REA24U, [id number] #### [facility] [address] [place] [address] Dagocolleen Adamsen MCHC (RBC) [Mass/Vol] 33.4 g/dL Normal 29.9-35.2 [facility] Comment on above: Performed By: #### C REA24U, [id number] #### [facility] [address] [place] [address] Dago Adamsen MCV (RBC) [Entitic vol] 91.7 fL Normal 81.0-99.0 [facility] Comment on above: Performed By: #### C REA24U, [id number] #### [facility] [address] [place] [address] Dago Laurel MONO # 0.3 103/ul Normal 0.3-0.8 [facility] Comment on above: Performed By: #### C REA24U, [id number] #### [facility] [address] [place] [address] Dago Adamsen Monocytes/100 WBC (Bld) 4.9 % Normal 1.7-12.0 [facility] Comment on above: Performed By: #### C REA24U, [id number] #### [facility] [address] [place] [address] Dago Adamsen NEUT # 4.6 103/ul Normal 1.4-6.5 [facility] Comment on above: Performed By: #### Janneth PA4U, [id number] #### [facility] [address] [place], [place] [id number] Dago Barragan Neutrophils/100 WBC (Bld) 77.5 % Critically high 43.0-75.0 [facility] Comment on above: Performed By: #### C THIERNO4U, [id number] #### [facility] [address] [place], [place] [id number] Dagocolleen Barragan Platelet mean volume (Bld) [Entitic vol] 9.1 fL Critically low 9.5-13.5 [facility] Comment on above: Performed By: #### C THIERNO4U, [id number] #### [facility] [address] [place] [address] Dago Laurel PLT 151 103/ul Normal 150-450 [facility] Comment on above: Performed By: #### C REA24U, [id number] #### [facility] [address] [place] [address] Dago Laurel RBC 3.72 106/ul Critically low 4.20-5.40 [facility] Comment on above: Performed By: #### C NADYAA24U, [id number] #### [facility] [address] [place] [address] Dagocolleen Adamsen WBC 5.9 103/ul Normal 4.0-11.0 [facility] Comment on above: Performed By: #### C REA24U, [id number] #### [facility] [address] [place], [place] [id number] Dago Barragan CREA 24 HR URINEon 1 CREA, 24 HR UR 1238.68 mg/24 hr Normal 800.00-1, 800.0 0 [facility] Comment on above: Performed By: #### C REA24U, [id number] #### [facility] [address] [place], [place] [id number] Dago Laurel UR TOT VOL 775 ml/24 HR Normal [facility] Comment on above: Performed By: #### C REA24U, [id number] #### [facility] [address] [place] [address] Dago Barragan URINE CREAT 159.83 mg/dL Normal 20.00-300.00 [facility] Comment on above: Performed By: #### C REA24U, [id number] #### [facility] [address] [place] [address] Dago Barragan CREATININEon 06-01-2021 Creatinine [Mass/Vol] 0.61 mg/dL Normal 0.52-1.04 [facility] Comment on above: Performed By: #### C REA24U, [id number] #### [facility] [address] [place] [address] Dago Barragan EGFR-AF TAJIK >60 Normal >=60 [facility] Comment on above: Performed By: #### C REA24U, [id number] #### [facility] [address] [place] [address] Dago Barragan EGFR-NON AF TAJIK >60 Normal >=60 [facility] Comment on above: Performed By: #### C NADYAA24U, [id number] #### [facility] [address] [place] [address] Dago Barragan GLUCOSE - 1HRon 06-01-2021 Glucose [Mass/Vol] 86 mg/dL Normal 74-[address] [facility] Comment on above: Performed By: #### C REA24U, [id number] #### [facility] [address] [place] [address] Dago Barragan GLYCOHEMOGLOBIN A1Con 2020 ADA RECOMMENDATION ADA THERAPEUTIC TARGET 6.0 - 7.0 ACTION SUGGESTED > 7.0 Normal [facility] Comment on above: Performed By: #### C REA24U, [id number] #### [facility] [address] [place] [address] Dago Barragan Glucose [Mass/Vol] 82 mg/dL Normal [facility] Comment on above: Performed By: #### C REA24U, [id number] #### [facility] [address] [place] [address] Dagocolleen Barragan HbA1c (Bld) [Mass fraction] 4.5 % Normal <=6.0 [facility] Comment on above: Performed By: #### C REA24U, [id number] #### [facility] [address] [place] [address] Dagocolleen Adamsen LDHon 06-01-2021 LDH 114 U/L Critically low 122-222 [facility] Comment on above: Performed By: #### L DH, PREGQNT, URIC, BUN, ALT, AST, CREA, TSH #### [facility] [address] [place] [address] Dagocolleen Adamsen PREG QUANT HCGon 06-01-2021 HCG QUANT 59755 mIU/mL Normal [facility] Comment on above: Performed By: #### L DH, PREGQNT, URIC, BUN, ALT, AST, CREA, TSH #### [facility] [address] [place] [address] Dago Laurel HCG RANGE SEE BELOW Normal [facility] Comment on above: Result Comment: 5-50 0-1 WEEK 40-300 1-2 WEEKS 100-1,000 2-3 WEEKS 500-6,000 3-4 WEEKS 5,000-200,000 1-2 MONTHS 10,000-100,000 2-3 MONTHS 3,000-50,000 2ND TRIMESTER 1,000-50,000 3RD TRIMESTER Performed By: #### L DH, PREGQNT, URIC, BUN, ALT, AST, CREA, TSH #### [facility] [address] [place] [address] Dagocolleen Barragan PROTEIN 24HR URINEon 021 T PROT, 24 HR UR 117.0 mg/24 hr Normal 42.0-225.0 [facility] Comment on above: Performed By: #### C REA24U, [id number] #### [facility] [address] [place] [address] Dago Laurel UR PROT 15.1 mg/dL Critically high <=12.0 [facility] Comment on above: Performed By: #### C REA24U, [id number] #### [facility] [address] [address] Dago Barragan SGOTon 06-01-2021 AST [Catalytic activity/Vol] 11 U/L Critically low 14-36 [facility] Comment on above: Performed By: #### L DH, PREGQNT, URIC, BUN, ALT, AST, CREA, TSH #### [facility] [address] [place] [address] Dago Barragan SGPTon 06-01-2021 ALT [Catalytic activity/Vol] 11 U/L Normal 9-52 [facility] Comment on above: Performed By: #### L DH, PREGQNT, URIC, BUN, ALT, AST, CREA, TSH #### [facility] [address] [place] [address] Dago Barragan TSHon 06-01-2021 TSH 0.523 uIU/mL Normal 0.470-4.680 [facility] Comment on above: Performed By: #### L DH, PREGQNT, URIC, BUN, ALT, AST, CREA, TSH #### [facility] [address] [place] [address] Dago Barragan TSH RANGE SEE BELOW Normal [facility] Comment on above: Result Comment: <0.3 4 UIU/ml HYPERTHYROID 0.34-5.60 UIU/ml EUTHYROID >5.60 UIU/ml HYPOTHYROID Performed By: #### L DH, PREGQNT, URIC, BUN, ALT, AST, CREA, TSH #### [facility] [address] [place] [address] Dago Laurel TYPE AND SCREENon 06-01-2021 TYPE AND SCREEN Negative Normal [facility] Comment on above: Performed By: #### C REA24U, [id number] #### [facility] [address] [place] [address] Dago Barragan URIC ACID SERUMon 06-01-2021 Urate [Mass/Vol] 2.6 mg/dL Normal 2.5-6.2 [facility] Comment on above: Performed By: #### L DH, PREGQNT, URIC, BUN, ALT, AST, CREA, TSH #### [facility] [address] [id number] Dago Barragan Encounters Encounter Date Encounter Type Care Provider Facility Start: 06-12-2024 End: 06-12-2024 ambulatory GUDELIA FLORENCE Not Available Start: 05-15-2024 End: 05-15-2024 ambulatory None Provider Facility:[facility] Start: 05-10-2024 End: 05-10-2024 Emergency department patient visit Gigi Adkins Facility:[facility] Start: 05-02-2024 End: 05-02-2024 ambulatory GUDELIA FLORENCE Not Available Start: 03-19-2024 End: 03-19-2024 ambulatory GUDELIA FLORENCE Not Available Start: 01-24-2024 End: 01-24-2024 ambulatory GUDELIA FLORENCE Not Available Start: 10-11-2023 End: 10-11-2023 ambulatory PASHA Elizalde WORKMAN Not Available Start: 05-23-2022 End: 05-23-[address] GUDELIA FLORENCE Facility:[facility] Start: 10-11-[address] DOCTOR DALTON Facility :[facility] Start: 10-05-2021 End: 10-07-2021 Evaluation and management of inpatient DR GUDELIA FLORENCE Facility:[facility] Start: 10-04-2021 Encounter for prepro cedural laboratory examination DR GUDELIA FLORENCE [facility] Start: 10-02-2021 End: 10-03-[address] GUDELIA [...] 06-01-2021 End: 06-02-2021 ambulatory ARETHA ARELLANO Facility:[facility] Procedures Date Procedure Procedure Detail Performing Clinician Start: 10-05-2021 Extraction of Produc ts of Conception, Extraperitoneal, Open Approach ARETHA ARELLANO Payers Date Payer Category Payer Unknown [id number] 2019 Unknown [id number] 1994 Unknown [id number] 2.16.84 [id number] 1994 Unknown [id number] 2.16.84 0.1.137564.3.579.2.593 1994 Unknown [id number] 2.16.84 0.1.226852.3.579.2.593 1994 Unknown [id number] 2.16.84 0.1.464794.3.579.2.593 1994 Unknown [id number] 2.16.84 0.1.050326.3.579.2.593 1994 Unknown [id number] 2.16.84 0.1.725344.3.579.2.593 1994 Unknown [id number] 2.16.84 0.1.612539.3.579.2.593 1994 Unknown [id number] 2.16.84 0.1.734557.3.579.2.593 1994 Unknown [id number] 2.16.84 0.1.299301.3.579.2.593 1994 Unknown [id number] 2.16.84 0.1.827868.3.579.2.593 1994 Unknown [id number] 2.16.84 0.1.303481.3.579.2.593 1994 Unknown [id number] 2.16.84 0.1.638969.3.579.2.593 1994 Unknown [id number] 2.16.8 40.1.616736.3.579.2.718 1994 Unknown [id number] 2.16.8 40.1.908390.3.579.2.718 1994 Unknown [id number] 2.16.84 0.1.282919.3.579.2.9 1994 Unknown [id number] 2.16.84 0.1.304187.3.579.2.1258 1994 Unknown [id number] 2.16.84 0.1.327540.3.579.2.9 1994 Unknown [id number] 2.16.84 0.1.899014.3.579.2.1258 1994 Unknown [id number] 2.16.840 .1.098101.3.579.2.1259 1959 Unknown [id number] Clinical Note 05-15-2024 Note Date & Type Note Facility 05-15-2024 Note Patient Education Ma terials Follows: Wound Care, Adult Taking care of your wound properly can help to prevent pain, infection, and scarring. It can also help your wound heal more quickly. Follow instructions from your health care provider about how to care for your wound. Supplies needed: ? Soap and water. ? Wound cleanser, saline, or germ-free (sterile) water. ? Gauze. ? If needed, a clean bandage (dressing) or other type of wound dressing material to cover or place in the wound. Follow your health care provider's instructions about what dressing supplies to use. ? Cream or topical ointment to apply to the wound, if told by your health care provider. How to care for your wound Cleaning the wound Ask your health care provider how to clean the wound. This may include: ? Using mild soap and water, a wound cleanser, saline, or sterile water. ? Using a clean gauze to pat the wound dry after cleaning it. Do not rub or scrub the wound. Dressing care ? Wash your hands with soap and water for at least 20 seconds before and after you change the dressing. If soap and water are not available, use hand stem crusher. ? Change your dressing as told by your health care provider. This may include: ? Cleaning or rinsing out (irrigating) the wound. ? Application of cream or topical ointment, if told by your health care provider. ? Placing a dressing over the wound or in the wound (packing). ? Covering the wound with an outer dressing. ? Leave stitches (sutures), geoff, skin glue, or adhesive strips in place. These skin closures may need to stay in place for 2 weeks or longer. If adhesive strip edges start to loosen and curl up, you may trim the loose edges. Do not remove adhesive strips completely unless your health care provider tells you to do that. ? Ask your health care provider when you can leave the wound uncovered. Checking for infection Check your wound area every day for signs of infection. Check for: ? More redness, swelling, or pain. ? Fluid or blood. ? Warmth. ? Pus or a bad smell. Follow these instructions at home Medicines ? If you were prescribed an antibiotic medicine, cream, or ointment, take or apply it as told by your health care provider. Do not stop using the antibiotic even if your condition improves. ? If you were prescribed pain medicine, take it 30 minutes before you do any wound care or as told by your health care provider. ? Take uodh-mxp-icodgow and prescription medicines only as told by your health care provider. Eating and drinking ? Eat a diet that includes protein, vitamin A, vitamin C, and other nutrient-rich foods to help the wound heal. ? Foods rich in protein include meat, fish, eggs, dairy, beans, and nuts. ? Foods rich in vitamin A include carrots and dark green, leafy vegetables. ? Foods rich in vitamin C include citrus fruits, tomatoes, broccoli, and peppers. ? Drink enough fluid to keep your urine pale yellow. General instructions ? Do not take baths, swim, or use a hot tub until your health care provider approves. Ask your health care provider if you may take showers. You may only be allowed to take sponge baths. ? Do not scratch or pick at the wound. Keep it covered as told by your health care provider. ? Return to your normal activities as told by your health care provider. Ask your health care provider what activities are safe for you. ? Protect your wound from the sun when you are outside for the first 6 months, or for as long as told by your health care provider. Cover up the scar area or apply sunscreen that has an SPF of at least 30. ? Do not use any products that contain nicotine or tobacco. These products include cigarettes, chewing tobacco, and vaping devices, such as e-cigarettes. If you need help quitting, ask your health care provider. ? Keep all follow-up visits. This is important. Contact a health care provider if: ? You received a tetanus shot and you have swelling, severe pain, redness, or bleeding at the injection site. ? Your pain is not controlled with medicine. ? You have any of these signs of infection: ? More redness, swelling, or pain around the wound. ? Fluid or blood coming from the wound. ? Warmth coming from the wound. ? A fever or chills. ? You are nauseous or you vomit. ? You are dizzy. ? You have a new rash or hardness around the wound. Get help right away if: ? You have a red streak of skin near the area around your wound. ? Pus or a bad smell coming from the wound. ? Your wound has been closed with geoff, sutures, skin glue, or adhesive strips and it begins to open up and separate. ? Your wound is bleeding, and the bleeding does not stop with gentle pressure. These symptoms may represent a serious problem that is an emergency. Do not wait to see if the symptoms will go away. Get medical help right away. Call your local emergency services (911 in the [place] Do not drive yourself to the surgical specialty center at [facility] (more content not included)... [facility] Clinical Note 05-10-2024 Note Date & Type Note Facility 05-10-2024 Note Education [facility] Dermatology Sutures, Geoff, or Adhesive Wound Closure Wound closure refers to holding skin and underlying tissue together while it heals, such as after surgery or after an injury. Health care providers use stitches (sutures), geoff, skin glue (tissue adhesive), and adhesive strips to close wounds. Your health care provider will use a wound closure method that helps you heal quickly and reduces the chances of infection or scarring. The type of wound closure depends on the location, size, and depth of your wound. More than one type of wound closure may be used on the same wound. In most cases, wounds are closed as soon as possible (primary skin closure). Sometimes, closure is delayed so the wound can be cleaned and then can heal naturally over weeks or months (delayed wound closure). This reduces the chance of infection. What are the different types of wound closure? Skin glue To use skin glue, your health care provider will hold the edges of the wound together and will paint the glue on the surface of your skin. You may need more than one layer of glue. Once the glue is dry, the wound may be covered with a bandage (dressing). This type of skin closure may be used for small wounds that are not deep (superficial wounds). It is often used for children and on facial wounds. Skin glue is less painful than other methods of wound closure, and it does not require medicine to numb the area (local anesthetic). This method also leaves nothing to be removed. Skin glue cannot be used for wounds that are deep, uneven, or bleeding. It is not used inside of a wound. Adhesive strips These strips are made of paper that is sticky (adhesive) and has many small holes in it. The strips are applied across your wound edges like a regular bandage. Adhesive strips may be used to close very shallow wounds or surgical wounds. They may be used along with sutures to improve skin closure. Sutures Sutures come in many different materials, strengths, and sizes. They may break down as your wound heals (absorbable), or they may need to be removed (nonabsorbable). Your health care provider will sew your skin or the tissues under your skin together with sutures and a steel needle. Your skin edges may be closed in one long stitch or in separate stitches. Then the sutures will be tied and cut. Sutures can be used for all kinds of wounds. Absorbable sutures may be used to close tissues under the skin. Sutures can cause a skin reaction that can lead to infection. [place] To close a wound with geoff, the edges of your skin on both sides of the wound will be brought close together. A staple will then be placed across the wound, and an instrument will secure the staple edges together. Geoff are often used to close surgical incisions. They are faster to use than sutures, and they cause less skin reaction. Geoff need to be removed using a tool that bends the geoff away from your skin. Follow these instructions at home: Medicines ? Take [id number] and prescription medicines only as told by your health care provider. ? If you were prescribed an antibiotic medicine, take it as told by your health care provider. Do not stop taking the antibiotic even if you start to feel better. Wound care ? Follow instructions from your health care provider about how to take care of your wound and dressing. ? Wash your hands with soap and water for at least 20 seconds before and after you change your dressing. If soap and water are not available, use hand stem crusher. ? Do not try to remove your wound closures unless your health care provider tells you to do that. You may need a follow-up visit with your health care provider to remove your closures. ? Wound closures may stay in place for 2 weeks or longer. ? Absorbable sutures may dissolve after a few days or weeks. ? If adhesive strip edges start to loosen and curl up, you may trim the loose edges. ? Do not pick at your wound. Picking can cause an infection or cause your wound to reopen. ? Apply ointments or creams only as told by your health care provider. ? Check your wound every day for signs of infection. Check for: ? Redness, swelling, or pain. ? Fluid or blood. ? New warmth, a rash, or hardness at the wound site. ? Pus or a bad smell. General instructions ? Do not take baths, swim, or use a hot tub until your health care provider approves. Ask your health care provider if you may take showers. You may only be allowed to take sponge baths. ? Do not soak your wound in water. ? Eat a diet that includes protein, vitamin A, and vitamin C to help the wound heal. ? Drink enough fluid to keep your urine pale yellow. ? Keep all follow-up visits. This is important. Contact a health care provider if: ? You have a fever or chills. ? You have redness, swelling, or pain around your wound. ? You have fluid or blood coming from your wound. ? You have new warmth, a (more content not included)... [facility] Clinical Note 10-05-2021 Note Date & Type Note Facility 10-05-2021 Note The [place], [place] NAME: DEBBIE NARAYANAN DATE OF : MEDICAL REC#: [id number] MANAGER GENERAL: [id number] ADMIT DATE: 10/05/2021 05:28:00 SERVICE DEVELOPER DATE: 10/05/2021 10:00 DICTATING PHYSICIAN: GUDELIA FLORENCE DICTATION DATE: 10/05/2021 09:00 OPERATIVE NOTE OPERATION DATE: 10-05-21 ANESTHETIC:Spinal with Duramorph. INSPECTOR PROCESS:EULALIO Eastman PREOPERATIVE DIAGNOSIS: 1. Intrauterine at 38 [...] and cut. Cord blood was obtained. The was handed off to awaiting team. The [...] fashion. The patient's skin was closed using geoff. The patient tolerated the procedure well. Sponge, lap, and needle counts were correct x2. The patient was taken to the Recovery Room in stable condition. Electronically Authenticated and Edited by: Gudelia Florence DO on 10/05/2021 11:21 PM [facility] Signed and Approved by: DR GUDELIA FLORENCE . 10/05/2021 23:21:00 [facility] Summary Purpose Family History No Family History Records FoundNo Family History Records FoundNo Family History Records Found Advance Directives No Advanced Directives Records FoundNo Advanced Directives Records FoundNo Advanced Directives Records Found Additional Source Comments INFORMATION SOURCE (unrecogn ized section and content) DATE CREATED AUTHOR 05/29/2022 [facility] DATE CREATED AUTHOR AUTHOR'S ORGANIZ ATION 06/11/2024 [facility] DATE CREATED AUTHOR AUTHOR'S ORGANIZ ATION 06/15/2024 [facility] EPIC FOR RECORDS PERTAINING TO PATIENTS WHO ARE [...] BE BASED ON THE PRIMARY CLINICAL RECORDS. [facility]. provides no warranty or guarantee of the accuracy or completeness of information in this document.
== END 2024-07-15 20:15 | disposition home or self-care (01) ==
LOC: LAB 20:14
PROVIDERS: Visit Provider Obstetrics & Gynecology
DX: Z01.419 Encounter for gynecological examination (general) (routine) without abnormal findings (principal)
CPT/HCPCS: 87624; 88175

== ENCOUNTER 2024-07-22 12:59 | Outpatient (OUT) | payer OTHER, SELFPAY ==
--- NOTE | 2024-07-22 13:01 | US_ITS ---
[address] [address] Patient Name: DEBBIE NARAYANAN MRN: [id number] date: 1995 Sex: F Assigned Patient Location: [facility] Current Patient Location: Accession/Order Number: [id number] Exam Date: 07/22/2024 13:02 Report Date: 07/23/2024 07:52 At the request of: GUDELIA ABDUL Procedure: US pelvis transvaginal EXAMINATION: US pelvis transvaginal HISTORY: VAGINAL BLEEDING WITH IUD, UNABLE TO LOCATE STRINGS. COMPARISON: No relevant comparison available. FINDINGS: Transvaginal images The uterus measures 9.1 x 4.5 x 5.3 cm. No focal myometrial mass. The uterus is retroverted. The endometrial stripe measures 9 mm, normal. Linear hyperechogenicity poorly visualized within the endometrial cavity likely a normally positioned IUD The right ovary is normal measuring 3.9 x 2.3 x 3.4 cm. Normal color and Doppler flow The left ovary is normal measuring 4.2 x 2.3 x 3.0 cm. Normal color and Doppler flow No free fluid US/US pelvis transvaginal IMPRESSION: Normal position of the IUD Electronically authenticated by: IVA GRIFFIN Date: 07/23/2024 07:52
== END 2024-07-22 13:00 | disposition home or self-care (01) ==
LOC: NOMS 12:59
PROVIDERS: Visit Provider Obstetrics & Gynecology
DX: Z30.431 Encounter for routine checking of intrauterine contraceptive device (principal)
CPT/HCPCS: 76830